=== PATIENT | female | born 1980 | race Caucasian/White ===

== ENCOUNTER 2020-09-08 13:24 | Outpatient (CLI) | payer OTHER ==
[2020-09-08 14:35] LABS: HCT - HEMATOCRIT 32.2 % (37.0-47.0); HGB - HEMOGLOBIN 10.8 g/dL (12.0-16.0); MEAN CORPUSCULAR HEMOGLOBIN 30.7 pg (27.0-31.0); MEAN CORPUSCULAR HGB CONC 33.5 g/dL (32.0-36.0); MEAN CORPUSCULAR VOLUME 91.5 fL (81.0-99.0); MEAN PLATELET VOLUME 9.4 fL (7.9-10.8); RED BLOOD COUNT 3.52 10^6/uL (4.20-5.40); RED CELL DISTRIBUTION WIDTH 13.7 % (12.0-15.0); WHITE BLOOD COUNT 9.3 x10^3/uL (4.8-10.8)
[2020-09-08 14:53] LABS: CREATININE,URINE 126.8 mg/dL; PROTEIN/CREATININE RATIO,URINE 0.3 (<=0.2)
[2020-09-08 14:56] LABS: ALBUMIN 3.2 g/dL (3.2-5.5); ALBUMIN/GLOBULIN RATIO 0.9 (1.0-2.2); BILIRUBIN,TOTAL 0.7 mg/dL (0.2-1.0); CALCIUM 8.7 mg/dL (8.5-10.3); CREATININE 0.5 mg/dL (0.4-1.0); POTASSIUM 3.5 mmol/L (3.5-5.0); TOTAL PROTEIN 6.7 g/dL (6.7-8.2)
== END 2020-09-08 13:25 | disposition home or self-care (01) ==
LOC: LAB 13:24
PROVIDERS: ATTEND Obstetrics & Gynecology
DX: O09.90 Supervision of high risk pregnancy, unspecified, unspecified trimester (principal); Z36.89 Encounter for other specified antenatal screening; Z87.59 Personal history of other complications of pregnancy, childbirth and the puerperium
CPT/HCPCS: 36415; 80053; 82570; 82950; 84156; 85027; 86762; 86850; 86900; 86901

== ENCOUNTER 2020-09-08 18:31 | Observation (INO) | payer OTHER ==
[2020-09-08] MEDS ORDERED: BETAMETHASONE 30 MG/5 ML VIAL IM ONE (20:53)
[2020-09-08] MEDS ORDERED: SERTRALINE 50 MG TABLET PO SCH (21:36)
[2020-09-09 06:36] LABS: BASOPHILS % (AUTO) 0.3 %; HCT - HEMATOCRIT 34.2 % (37.0-47.0); LYMPHOCYTES # (AUTO) 1.1 10^3/uL (1.5-3.5); LYMPHOCYTES % (AUTO) 12.1 %; MEAN CORPUSCULAR HEMOGLOBIN 29.9 pg (27.0-31.0); MEAN CORPUSCULAR HGB CONC 32.2 g/dL (32.0-36.0); MEAN CORPUSCULAR VOLUME 92.9 fL (81.0-99.0); MEAN PLATELET VOLUME 10.1 fL (7.9-10.8); MONOCYTES # (AUTO) 0.2 10^3/uL (0.0-1.0); MONOCYTES % (AUTO) 1.6 %; NEUTROPHILS % (AUTO) 85.1 %; PLT - PLATELET COUNT 217 10^3/uL (130-450); RED BLOOD COUNT 3.68 10^6/uL (4.20-5.40); RED CELL DISTRIBUTION WIDTH 13.5 % (12.0-15.0); WHITE BLOOD COUNT 9.4 x10^3/uL (4.8-10.8)
[2020-09-09 06:55] LABS: ALBUMIN 3.3 g/dL (3.2-5.5); ALBUMIN/GLOBULIN RATIO 0.9 (1.0-2.2); BILIRUBIN,TOTAL 0.9 mg/dL (0.2-1.0); CALCIUM 9.1 mg/dL (8.5-10.3); CREATININE 0.4 mg/dL (0.4-1.0); POTASSIUM 3.6 mmol/L (3.5-5.0); TOTAL PROTEIN 6.8 g/dL (6.7-8.2)
[2020-09-09] MEDS ORDERED: LABETALOL 100 MG TABLET PO SCH ×2 (08:00→16:00)
[2020-09-09 08:13] VITALS: BP 141/88
--- NOTE | 2020-09-09 09:27 | Discharge Plan ---
Discharge Plan Problem Reviewed?: No Disposition: Home, Self Care Condition: Good Diet: Regular Additional Instructions or Follow Up instructions: Go to triage immediately for any moderateWe to severe headaches, flashers in vision, worsening spots in vision, upper abdominal pain, or a sudden change in swelling, or blood pressure 170/110. Take blood pressures twice daily. Take an extra blood pressure if you feel weird. Take your labetalol 200mg every 8 hours. o Goal blood pressures 140-150s/90s. o If your blood pressure is less than 140/90 then take 100mg of labetalol for your next dose (only once) rather than 200mg. o If your blood pressure is 160/100 then take 100mg of labetalol extra. Recheck your blood pressure in 1 hour. If it is still more than 160/100 then take 100mg more of labetalol and come to triage. o *For BPs, if EITHER number fits the abnormal range then follow the advice above. You dont have to have both a top and bottom number to be abnormal. Return to triage for your 2nd betamethasone tonight at 9:15pm. We will want to give it around 9:40pm. Rest at home. Try not to run after the kids. No exercise, working, or errands. You can be up around the house doing easy chores. Anticipate needing to have a perterm delivery when you develop severe preeclampsia. We would transport [facility] to [facility] to be at their NICU. Ongoing surveillance to see if you are getting worse o 2x per week visits in triage for NST. At this visit once weekly we will do bloodwork. o 1x per week ultrasound to check growth and amniotic fluid. o OB visits in clinic weekly. No Smoking: If you smoke, Please STOP! Call for help. Follow-up with: Yeny Mcclure MD [Provider Admit Priv/Credential] - 1 Week (In 5d in clinic Tonight for betamethasone #2 3d for NST)
--- NOTE | 2020-09-09 11:02 | Ultrasound Report ---
PROCEDURE: OB F/U or Repeat INDICATIONS: preeclampsia OUTSIDE/PRIOR DATING DATA: Last menstrual period (LMP): None available. LMP-based estimated date of delivery (SONIA): Given by the physician as 11/13/2020. First dating scan (date and location): 09/09/2020. TECHNIQUE: Real-time scanning was performed of the fetus, with image documentation and biometric measurements. COMPARISON: None. FINDINGS: General: A single live intrauterine gestation is present. Presentation: Transverse, with the head to the maternal right Placenta: Placental position is posterior, without previa. Amniotic fluid index: 19.8 cm, 83rd percentile for gestational age. heart rate: 160 beats per minute. Maternal cervical canal: 3.7 cm long; normal length is 2.5 cm or more. biometrics: Biparietal diameter: 7.8 cm equals 31 weeks 2 days Head circumference: 28.9 cm equals 31 weeks 6 days Abdominal circumference: 27.7 cm equals 31 weeks 5 days Femur length: 5.8 cm equals 30 weeks 2 days Estimated gestational age from initial scan: 30 weeks 5 days Composite gestational age from present scan: 31 weeks 2 days Estimated weight and percentile: 1730 g, 56 percentile Measurement variability in biometric dating: +/- 10 days from 12-20 weeks gestation, +/- 2 weeks from 20-30 weeks gestation, +/- 3 weeks at 30 weeks gestation or more. Other: Not applicable. IMPRESSION: No significant ultrasound abnormality is seen. Note: Concordant preliminary findings given by the sap analyst upon the completion of the examination to nurse Pat at 10:40 AM Reviewed by: Gene Ramos MD on 09/09/2020 10:01 AM YOAV Approved by: Gene Ramos MD on 09/09/2020 10:01 AM YOAV Station ID: [id number]
--- NOTE | 2020-09-09 14:24 | HISTORY & PHYSICAL EXAMINATION ---
History of Present Illness - History of Present Illness HPI Comment/Other: OBSERVATION NOTE CC: asked to come in due to abnormal P:C ratio HPI: BPs increasing at home, some in 170/100s, increased her labetalol from 100mg bid to 200mg bid today. Mild ONEILL and gets them pretty frequently--feels the same. Has had scotoma for weeks and they are slowly increasing with time but no abrupt recent increase in symptoms. No upper abdominal pain. Feels puffy, unable to wear her usual rings, gained 5# last week but that was taken with 2 different scales. ROS: no VB, no LOF. Good FM. PMH: chronic HTN, depression PSH: x2, D&C, cholecystectomy Allergies: blueberry and bee venom Meds: labetalol 200mg po bid, ASA 81mg daily, PNV daily, sertraline 75mg daily OB: DATING: LMP 02/07/20 gives SONIA 11/13/20 US on 04/19/20 at 10+0 wga gives SONIA 11/15/20; cwd labs not available in records obtained CHTN: Taking labetalol 100 mg po bid -BPs in 150/100 at first OB visit -No baseline labs notes other than trace protein on initial UA -ASA 81 mg ANXIETY/DEPRESSION: Taking sertraline 75 mg po daily. A pos/Rubella imm VZV: had chicken pox as a child Genetic testing: normal, per pt FAS: normal, per pt Glucola ordered today ETA 162 Influenza: received per pt TDAP given HSV: denies MOD: repeat CS with BTL pap: 04/19/2020. 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 Most recent BPs 140s/80s. Alert, smiling, NAD Abd soft, nt/nd Fundus NT LE with trace edema to burgos 3+ DTR bilaterally, no clonus Normal PIH labs except for P:C ratio of 0.3 A/P: 40yo at 30w5d by LMP c/w 10w US with chronic hypertension and superimposed preeclampsia without severe features. Pt was observed overnight, BPs stable, no sx, labs unchanged. BMZ #1 given and she will return for #2 tonight. Growth US normal 56%ile and surveillance arranged. She was sent home with detailed instructions--she expressed comfort with/understanding of the plan. Go to triage immediately for any moderateWe to severe headaches, flashers in vision, worsening spots in vision, upper abdominal pain, or a sudden change in swelling, or blood pressure 170/110. Take blood pressures twice daily. Take an extra blood pressure if you feel weird. Take your labetalol 200mg every 8 hours. o Goal blood pressures 140-150s/90s. o If your blood pressure is less than 140/90 then take 100mg of labetalol for your next dose (only once) rather than 200mg. o If your blood pressure is 160/100 then take 100mg of labetalol extra. R echeck your blood pressure in 1 hour. If it is still more than 160/100 then take 100mg more of labetalol and come to triage. o *For BPs, if EITHER number fits the abnormal range then follow the advice above. You dont have to have both a top and bottom number to be abnormal. Return to triage for your 2nd betamethasone tonight at 9:15pm. We will want to give it around 9:40pm. Rest at home. Try not to run after the kids. No exercise, working, or errands. You can be up around the house doing easy chores. Anticipate needing to have a perterm delivery when you develop severe preeclampsia. We would transport you to [facility] to be at their NICU. Ongoing surveillance to see if you are getting worse o 2x per week visits in triage for NST. At this visit once weekly we will do bloodwork. o 1x per week ultrasound to check growth and amniotic fluid. o OB visits in clinic weekly. Meds/Allgy - Home Medications Home Medications: Ambulatory Orders Medication Instructions Recorded Confirmed Labetalol [Trandate] 200 mg PO BID 09/08/20 09/08/20 Sertraline [Zoloft] 50 mg PO DAILY 09/08/20 09/08/20 - Allergies Allergies/Adverse Reactions: Allergies Allergy/AdvReac Type Severity Reaction Status Date / Time blueberry Allergy Intermediate Hives Verified 09/08/20 21:09 bee venom protein (honey bee) Allergy Hives Verified 09/08/20 21:09 Exam - Vital Signs Vital Signs: Vital Signs x48h Temp Pulse Resp BP Pulse Ox 09/09/20 08:12 99.0 F 95 18 141/88 H 99 Conclusion/Plan - Lab Results Fish Bones: 09/09/20 05:40 09/09/20 05:40
[2020-09-09] MEDS ORDERED: SERTRALINE 50 MG TABLET PO SCH (21:00)
--- NOTE | 2020-10-03 17:02 | PROCEDURE REPORT ---
- HPI Diagnosis/Indication for NST: Pre- Hypertension Current EDU 11/13/20 Gestation 30 Weeks and 4 Days 4 Para 2 Vital Signs Temperature 99.0 F 09/08/20 18:39 Heart Rate 98 09/08/20 18:39 Respiratory Rate 20 09/08/20 18:39 Blood Pressure 169/81 H 09/08/20 18:39 O2 Saturation 100 09/08/20 18:39 Temperature 99.0 F 09/09/20 08:12 Heart Rate 95 09/09/20 08:12 Respiratory Rate 18 09/09/20 08:12 Blood Pressure 141/88 H 09/09/20 08:12 O2 Saturation 99 09/09/20 08:12 - NST Procedure NST Procedure Start Date 09/08/20 Start Time 18:40 Stop Time 20:40 Vibroacoustic Stimulation Used No Patient States Movement Yes - Results and Plan Findings/Impression: Baseline: normal BPM Variability: Moderate Accelerations: Present Decelerations: Absent Trends in FHR over time: no changes [place] contractions in 10 minutes: 0 Impression: reactive Category 1 NST
== END 2020-09-09 11:35 | disposition home or self-care (01) ==
LOC: WFO 18:31 → FBP 18:35 → WFO 20:52 → FBP 20:52
PROVIDERS: ADMIT Obstetrics & Gynecology; ATTEND Obstetrics & Gynecology
DX: O11.3 Pre-existing hypertension with pre-eclampsia, third trimester (principal); O99.343 Other mental disorders complicating pregnancy, third trimester; F32.9 Major depressive disorder, single episode, unspecified; O34.219 Maternal care for unspecified type scar from previous cesarean delivery; O09.90 Supervision of high risk pregnancy, unspecified, unspecified trimester; Z36.89 Encounter for other specified antenatal screening; Z87.59 Personal history of other complications of pregnancy, childbirth and the puerperium; Z3A.30 30 weeks gestation of pregnancy; Z79.899 Other long term (current) drug therapy
CPT/HCPCS: 36415; 59025; 76816; 80053; 82570; 82950; 84156; 85025; 85027; 86762; 86850; 86900; 86901; 96372; 99213; A9270; G0378

== ENCOUNTER 2020-09-09 21:13 | Outpatient (CLI) | payer OTHER ==
[2020-09-09] MEDS ORDERED: BETAMETHASONE 30 MG/5 ML VIAL IM ONE (21:19)
[2020-09-09 21:26] VITALS: BP 132/72
--- NOTE | 2020-09-10 18:21 | PROVIDER PROGRESS NOTE ---
- HPI Current : Vital Signs Temperature 98.8 F 09/09/20 21:21 Heart Rate 88 09/09/20 21:21 Respiratory Rate 16 09/09/20 21:21 Blood Pressure 132/72 H 09/09/20 21:21 Temperature 98.8 F 09/09/20 21:21 Heart Rate 88 09/09/20 21:21 Respiratory Rate 16 09/09/20 21:21 Blood Pressure 132/72 H 09/09/20 21:21 O2 Saturation - Procedures NST Procedure: NST Procedure Start Time 18:40 Stop Time 20:40 - Plan Plan: Betamethasone #2 given. Diagnosis is preeclampsia without severe features.
== END 2020-09-09 21:25 | disposition home or self-care (01) ==
LOC: WFO 21:13 → FBP 21:14 → WFO 21:25
PROVIDERS: ATTEND Obstetrics & Gynecology
DX: O14.00 Mild to moderate pre-eclampsia, unspecified trimester (principal); Z3A.00 Weeks of gestation of pregnancy not specified

== ENCOUNTER 2020-09-11 10:02 | Outpatient (CLI) | payer OTHER ==
--- NOTE | 2020-09-11 14:52 | Ultrasound Report ---
PROCEDURE: OB Biophysical Profile INDICATIONS: Nonreactive NST OUTSIDE/PRIOR DATING DATA: Estimated date of delivery (SONIA) from ordering physician: 11/13/2020. TECHNIQUE: Real-time scanning was performed of the fetus, with image documentation and biometric scout surements. Biophysical profile was also obtained. Endovaginal scanning: Not needed FINDINGS: General: A single living intrauterine gestation is present. Presentation: Fetus head maternal right, transverse orientation Placenta: Placental position is posterior, without previa. Amniotic fluid index: 14.6 cm, 51% for gestational age. heart rate: 158 beats per minute. Maternal cervical canal: 4.4 cm long; normal length is 2.5 cm or more. biometrics: Estimated gestational age from initial scan: not applicable. Composite gestational age from present scan: 31 weeks 0 days Biophysical profile: 8 of 8 possible points. Tone: 2 points. Movement: 2 points. Respiration: 2 points. Largest pocket of fluid: 2 points. Umbilical artery Doppler: Normal at the proximal, mid and distal thirds Note is made of a single bilateral ovarian cyst on the right and on the left. These measure up to 2.7 cm and 2.2 cm, respectively. IMPRESSION: Normal biophysical profile, 8 of 8 possible points, normal umbilical artery systolic/diastolic ratio at the proximal, mid and distal thirds. Reviewed by: Larry Vargas MD on 09/11/2020 2:50 PM PDT Approved by: Larry Vargas MD on 09/11/2020 2:50 PM PDT Station ID: [id number]
[2020-09-11 15:25] VITALS: BP 140/80
--- NOTE | 2020-09-12 11:11 | PROCEDURE REPORT ---
- HPI Diagnosis/Indication for NST: Gestational Hypertension Current EDU 11/13/20 Gestation 31 Weeks and 0 Days 4 Para 2 Vital Signs Temperature 98.2 F 09/11/20 15:24 Heart Rate 78 09/11/20 15:24 Respiratory Rate 18 09/11/20 15:24 Blood Pressure 140/80 H 09/11/20 15:24 Temperature 98.2 F 09/11/20 15:24 Heart Rate 78 09/11/20 15:24 Respiratory Rate 18 09/11/20 15:24 Blood Pressure 140/80 H 09/11/20 15:24 O2 Saturation - NST Procedure NST Procedure Start Date 09/11/20 Start Time 10:13 Stop Time 12:10 Vibroacoustic Stimulation Used Yes Patient States Movement Yes - Results and Plan Findings/Impression: Baseline: BPM 150 Variability: Moderate Accelerations: absent Decelerations: Absent Trends in FHR over time: no changes [place] contractions in 10 minutes: 0 Impression: category 1 NST, BPP 8/8.
== END 2020-09-11 13:00 | disposition home or self-care (01) ==
LOC: WFO 10:02 → FBP 10:06 → WFO 13:00
PROVIDERS: ATTEND Obstetrics & Gynecology
DX: O13.3 Gestational [pregnancy-induced] hypertension without significant proteinuria, third trimester (principal); Z3A.31 31 weeks gestation of pregnancy
CPT/HCPCS: 59025

== ENCOUNTER 2020-09-14 05:10 | Observation (INO) | payer OTHER ==
[2020-09-14] MEDS ORDERED: LABETALOL 100 MG TABLET PO SCH (05:34)
[2020-09-14 06:01] LABS: BASOPHILS % (AUTO) 0.4 %; EOSINOPHILS # (AUTO) 0.1 10^3/uL (0.0-0.7); EOSINOPHILS % (AUTO) 1.4 %; HCT - HEMATOCRIT 32.7 % (37.0-47.0); HGB - HEMOGLOBIN 10.6 g/dL (12.0-16.0); LYMPHOCYTES # (AUTO) 1.9 10^3/uL (1.5-3.5); LYMPHOCYTES % (AUTO) 20.4 %; MEAN CORPUSCULAR HEMOGLOBIN 29.9 pg (27.0-31.0); MEAN CORPUSCULAR HGB CONC 32.4 g/dL (32.0-36.0); MEAN CORPUSCULAR VOLUME 92.4 fL (81.0-99.0); MEAN PLATELET VOLUME 9.6 fL (7.9-10.8); MONOCYTES # (AUTO) 0.7 10^3/uL (0.0-1.0); MONOCYTES % (AUTO) 7.8 %; NEUTROPHILS # (AUTO) 6.3 10^3/uL (1.5-6.6); NEUTROPHILS % (AUTO) 68.9 %; PLT - PLATELET COUNT 227 10^3/uL (130-450); RED BLOOD COUNT 3.54 10^6/uL (4.20-5.40); RED CELL DISTRIBUTION WIDTH 13.4 % (12.0-15.0); WHITE BLOOD COUNT 9.1 x10^3/uL (4.8-10.8)
[2020-09-14 06:01] LABS: BILIRUBIN,URINE NEGATIVE (NEGATIVE); CLARITY,URINE CLEAR (CLEAR); GLUCOSE, URINE (UA) NEGATIVE (NEGATIVE); KETONES,URINE (UA) NEGATIVE (NEGATIVE); LEUKOCYTE ESTERASE, URINE NEGATIVE (NEGATIVE); NITRITE,URINE NEGATIVE (NEGATIVE); OCCULT BLOOD,URINE NEGATIVE (NEGATIVE); PH,URINE 6.5 PH (5.0-7.5); PROTEIN,URINE TRACE mg/dL (NEGATIVE); UROBILINOGEN,URINE 0.2 (NORMAL) E.U./dL (NORMAL)
[2020-09-14 06:10] LABS: CREATININE,URINE 130.7 mg/dL; PROTEIN/CREATININE RATIO,URINE 0.3 (<=0.2)
[2020-09-14 06:20] LABS: CREATININE 0.5 mg/dL (0.4-1.0); URIC ACID 3.4 mg/dL (2.6-7.2)
[2020-09-14] MEDS ORDERED: ACETAMINOPHEN 500 MG TABLET PO PRN (06:28)
[2020-09-14] MEDS ORDERED: LABETALOL 100 MG TABLET PO PRN (08:54)
[2020-09-14] MEDS ORDERED: ZOLPIDEM 5 MG TABLET PO PRN (08:56)
[2020-09-14] MEDS ORDERED: FAMOTIDINE 20 MG TABLET PO PRN (08:56)
[2020-09-14] MEDS ORDERED: CALCIUM CARBONATE CHEW 500 MG TABLET PO PRN (08:56)
--- NOTE | 2020-09-14 09:01 | HISTORY & PHYSICAL EXAMINATION ---
History of Present Illness - History of Present Illness HPI Comment/Other: CC: high blood pressure HPI: preeclampsia, has been taking BP at home and using labetalol PRN elevated value. See her log below-- BP log at home: 140-150s/mid 70s-80s 09/09/20 to 09/11/20 09/12/20 felt weird, slight headache, 165/80. Took labetalol 100mg and mild on repeat. 09/13 163/92 took an extra 100mg of labetalol and was mild on repeat. 5h later she felt dizzy and light-headed and BP was 122/74 09/14 headache and nausea 167/90 then 165/87. Took an extra 100mg labetalol and came to triage At triage admit 175/87. dropping to 150s 1h after another dose of 100mg labetalol, dropping to 140s about 1h later. Since yesterday dinnertime has had gradual onset of a mild to moderate headache. At first resolved last hs with tylenol and then recurred. Has had ONEILL earlier in preg but not very often at all. Took another dose of tylenol here in triage and it didn't seem to help much. Thinks she is over-tired and that may be a reason for ONEILL. Seeing some scotoma but has been doing this for weeks. Has mild upper abd pain sometimes after eating or when bending over. ROS: no UC, vaginal bleeding, or contractions. Good FM. PMH: chronic HTN, depression PSH: x2, D&C, cholecystectomy Allergies: blueberry and bee venom Meds: labetalol 200mg po tid with additional 100mg PRN elevated BP, ASA 81mg daily, PNV daily, sertraline 75mg daily OB: DATING: LMP 02/07/20 gives SONIA 11/13/20 US on 04/19/20 at 10+0 wga gives SONIA 11/15/20; cwd CHTN: -BPs in 150/100 at first OB visit -No baseline labs notes other than trace protein on initial UA -ASA 81 mg ANXIETY/DEPRESSION: Taking sertraline 75 mg po daily. A pos/Rubella imm VZV: had chicken pox as a child Genetic testing: normal, per pt FAS: normal, per pt Glucola ordered today ETA 162 Influenza: received per pt TDAP given HSV: denies MOD: repeat CS with BTL pap: 04/19/2020. 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 dropping to 150s 1h after another dose of 100mg labetalol, dropping to 140s about 1h later. Alert, smiling but anxious Abd soft, nt/nd Fundus NT LE with trace edema to burgos 3+ DTR bilaterally, no clonus Normal PIH labs except for P:C ratio of 0.3 Category 1 NST [place] neg A/P: 40yo at 31w3d by LMP c/w 10w US with chronic hypertension and superimposed preeclampsia initially diagnosed at 30w, now r/o severe features. Pt had some BP last week that were 170s so this is not new. Have been working up on labetalol since then, however. Pt is wondering if BP lability may be due to the labetalol and it could be with its short acting nature. Will switch to nifedipine xl 60mg daily with labetalol PRN breakthrough BPs. Watch here today with switch in meds and while watching ONEILL Pt with mild to mod ONEILL, initially improved with tylenol, possibly related to stress and lack of sleep. Will continue tylenol and observe. Pt's preeclampsia in the past presented with a severe headache. Transport to NICU facility PRN consistent severe features. Fetus: s/p BMZ #2 on 09/09/20. Growth US last week normal 56%ile. Category 1 NST. Will get BPP. Meds/Allgy - Home Medications Home Medications: Ambulatory Orders Medication Instructions Recorded Confirmed Labetalol [Trandate] 200 mg PO BID 09/08/20 09/08/20 Sertraline [Zoloft] 50 mg PO DAILY 09/08/20 09/08/20 - Allergies Allergies/Adverse Reactions: Allergies Allergy/AdvReac Type Severity Reaction Status Date / Time blueberry Allergy Intermediate Hives Verified 09/08/20 21:09 bee venom protein (honey bee) Allergy Hives Verified 09/08/20 21:09 Exam - Vital Signs Vital Signs: Vital Signs x48h Temp Pulse Resp BP Pulse Ox 09/14/20 06:20 84 147/84 H 09/14/20 06:10 154/89 H 09/14/20 06:01 158/86 H 05/13/21 05:25 98.7 F 86 16 175/87 H 98 Conclusion/Plan - Lab Results Fish Bones: 09/14/20 05:50 09/14/20 05:50
[2020-09-14] MEDS: hydrOXYzine PAMOATE 25 MG CAPSULE PO PRN ×2 (09:15→22:25)
[2020-09-14] MEDS: NIFEdipine ER 30 MG TABLET PO SCH (09:17)
--- NOTE | 2020-09-14 16:36 | Ultrasound Report ---
PROCEDURE: OB Biophysical Profile INDICATIONS: preeclampsia. Dopplers too please. OUTSIDE/PRIOR DATING DATA: Last menstrual period (LMP): Unknown. LMP-based estimated date of delivery (SONIA): Unknown. First dating scan (date and location): Unknown. Estimated date of delivery (SONIA) from first dating scan: Unknown. Physicians stated SONIA is 11/13/20.. TECHNIQUE: Real-time scanning was performed of the fetus, with image documentation and biometric scout surements. Biophysical profile was also obtained. COMPARISON: OB ultrasound 09/09/2020, 09/11/2020 FINDINGS: General: A single living intrauterine gestation is present. Presentation: Vertex Placenta: Placental position is posterior, without previa. Amniotic fluid index: 18.6 cm, 77th percentile for gestational age. Largest pocket 7.7 cm. heart rate: 150 beats per minute. Maternal cervical canal: 3.4 cm long; normal length is 2.5 cm or more. biometrics: Estimated gestational age from initial scan: 31 weeks 3 days Biophysical profile: Tone: 2 points. Movement: 2 points. Respiration: 0 points. Largest pocket of fluid: 2 points. Umbilical artery Doppler: 2.7, 2.5, 2.4 Miscellaneous: Right ovarian cyst is noted measuring 2.9 x 1.6 x 2.5 cm, left ovarian cyst measuring 1.8 x 1.2 x 1.5 cm. IMPRESSION: 1. Single live intrauterine . 2. BPP 6 out of 8 3. Cord Dopplers measure 2.7, 2.5 and 2.4. Reviewed by: Maine Duran MD on 09/14/2020 4:35 PM PDT Approved by: Maine Duran MD on 09/14/2020 4:35 PM PDT Station ID: [id number]
[2020-09-14] MEDS: SODIUM CHLORIDE FLUSH 0.9% 10 ML SYRINGE IVP PRN ×2 (20:54→22:25)
[2020-09-14] MEDS ORDERED: ONDANSETRON 4 MG/2 ML VIAL IVP PRN (22:11)
[2020-09-15 07:32] LABS: CREATININE,URINE 194.8 mg/dL; PROTEIN/CREATININE RATIO,URINE 0.2 (<=0.2)
[2020-09-15] MEDS: SODIUM CHLORIDE FLUSH 0.9% 10 ML SYRINGE IVP PRN (08:31)
[2020-09-15 08:38] VITALS: BP 140/82
[2020-09-15] MEDS: NIFEdipine ER 30 MG TABLET PO SCH (08:38)
--- NOTE | 2020-09-15 08:44 | Discharge Plan ---
Discharge Plan Problem Reviewed?: Yes Disposition: Home, Self Care Condition: Good Prescriptions: NIFEdipine [Procardia Xl] 30 mg PO DAILY #90 tablet Diet: Regular Activity Restrictions: No exercise Shower Restrictions: No Driving Restrictions: No Additional Instructions or Follow Up instructions: Take nifedipine XL, 30mg in the morning around 9am Today take your blood pressure every 4 hours and keep recording the values in your log If the top number of your blood pressure is 155-165, then take 100mg of labetalol and recheck your BP in 1 hour. If it is still 155-165 then take another 100mg of labetalol. If the top number of your blood pressure is 165 or higher then take 200mg of labetalol and recheck in 1 hour. If it is still above 165 then take another 100mg of labetalol. If the top number of your blood pressure reaches 180 then please take 200mg of labetalol and come to triage immediately. Regardless of your blood pressures, if you have a moderate to severe headache, different visual changes, or upper abdominal pain then come to triage immediately. No Smoking: If you smoke, Please STOP! Call for help. Follow-up with: Yeny Mcclure MD [Provider Admit Priv/Credential] - 1 Week
== END 2020-09-15 09:55 | disposition home or self-care (01) ==
LOC: WFO 05:10 → FBP 05:12 → WFO 08:50 → FBP 08:51
PROVIDERS: ADMIT Obstetrics & Gynecology; ATTEND Obstetrics & Gynecology
DX: O11.3 Pre-existing hypertension with pre-eclampsia, third trimester (principal); Z3A.31 31 weeks gestation of pregnancy; O99.343 Other mental disorders complicating pregnancy, third trimester; F32.9 Major depressive disorder, single episode, unspecified; F41.9 Anxiety disorder, unspecified; Z79.82 Long term (current) use of aspirin; Z79.899 Other long term (current) drug therapy
CPT/HCPCS: 36415; 76819; 81003; 82565; 82570; 83615; 84156; 84450; 84460; 84550; 85025; 85384; 96374; 99215; A9270; G0378; 59025; 99213; 99214

== ENCOUNTER 2020-09-18 10:59 | Outpatient (CLI) | payer OTHER ==
[2020-09-18 11:13] VITALS: BP 134/87
--- NOTE | 2020-09-18 20:13 | PROCEDURE REPORT ---
- HPI Diagnosis/Indication for NST: Other (pre-eclampsia) Current EDU 11/13/20 Gestation 32 Weeks and 0 Days 3 Para 2 Vital Signs Temperature 99.3 F 09/18/20 11:08 Heart Rate 108 H 09/18/20 11:08 Respiratory Rate 18 09/18/20 11:08 Blood Pressure 134/87 H 09/18/20 11:08 Temperature 99.3 F 09/18/20 11:11 Heart Rate 107 H 09/18/20 11:11 Respiratory Rate 18 09/18/20 11:11 Blood Pressure 134/87 H 09/18/20 11:11 O2 Saturation - NST Procedure NST Procedure Start Date 09/18/20 Start Time 11:04 Stop Time 11:32 Patient States Movement Yes - Results and Plan Findings/Impression: Patient is a 40 yo at 32+0 wga with CHTN and MIGUEL here for NST Blood pressures wnl EFM 145 mod suzanne 15x15 accels no decels TOCO: quiet Cat I tracing Cont with twice weekly NST and weekly DARIN No change in antihypertensive regimen DX: CHTN with MIGUEL IUP at 32+0 wga
== END 2020-09-18 11:40 | disposition home or self-care (01) ==
LOC: WFO 10:59 → FBP 11:00 → WFO 11:40
PROVIDERS: ATTEND Obstetrics & Gynecology
DX: O11.3 Pre-existing hypertension with pre-eclampsia, third trimester (principal); O10.913 Unspecified pre-existing hypertension complicating pregnancy, third trimester; Z3A.32 32 weeks gestation of pregnancy
CPT/HCPCS: 59025

== ENCOUNTER 2020-09-21 09:57 | Outpatient (CLI) | payer OTHER ==
[2020-09-21 10:30] LABS: BASOPHILS % (AUTO) 0.3 %; EOSINOPHILS # (AUTO) 0.1 10^3/uL (0.0-0.7); HCT - HEMATOCRIT 36.2 % (37.0-47.0); HGB - HEMOGLOBIN 11.9 g/dL (12.0-16.0); LYMPHOCYTES # (AUTO) 1.7 10^3/uL (1.5-3.5); LYMPHOCYTES % (AUTO) 18.6 %; MEAN CORPUSCULAR HEMOGLOBIN 30.5 pg (27.0-31.0); MEAN CORPUSCULAR HGB CONC 32.9 g/dL (32.0-36.0); MEAN CORPUSCULAR VOLUME 92.8 fL (81.0-99.0); MEAN PLATELET VOLUME 9.7 fL (7.9-10.8); MONOCYTES # (AUTO) 0.7 10^3/uL (0.0-1.0); MONOCYTES % (AUTO) 7.7 %; NEUTROPHILS # (AUTO) 6.6 10^3/uL (1.5-6.6); NEUTROPHILS % (AUTO) 71.7 %; PLT - PLATELET COUNT 203 10^3/uL (130-450); RED CELL DISTRIBUTION WIDTH 14.1 % (12.0-15.0); WHITE BLOOD COUNT 9.2 x10^3/uL (4.8-10.8)
[2020-09-21 10:36] LABS: ALBUMIN 3.3 g/dL (3.2-5.5); ALBUMIN/GLOBULIN RATIO 0.9 (1.0-2.2); BILIRUBIN,TOTAL 0.6 mg/dL (0.2-1.0); CALCIUM 8.9 mg/dL (8.5-10.3); CREATININE 0.6 mg/dL (0.4-1.0); POTASSIUM 3.5 mmol/L (3.5-5.0); TOTAL PROTEIN 7.1 g/dL (6.7-8.2)
[2020-09-21 10:45] LABS: CREATININE,URINE 512.9 mg/dL; PROTEIN/CREATININE RATIO,URINE 0.1 (<=0.2)
[2020-09-21 11:35] VITALS: BP 159/93
--- NOTE | 2020-10-01 16:45 | PROCEDURE REPORT ---
- HPI Diagnosis/Indication for NST: Pre- Hypertension Current EDU 11/13/20 Gestation 32 Weeks and 3 Days 3 Para 2 Vital Signs Temperature 98.2 F 09/21/20 10:16 Heart Rate 103 H 09/21/20 10:16 Respiratory Rate 18 09/21/20 10:16 Blood Pressure 146/97 H 09/21/20 10:16 Temperature 98.2 F 09/21/20 10:16 Heart Rate 103 H 09/21/20 10:16 Respiratory Rate 18 09/21/20 10:16 Blood Pressure 159/93 H 09/21/20 10:48 O2 Saturation - NST Procedure NST Procedure Start Date 09/21/20 Start Time 10:11 Stop Time 10:58 Vibroacoustic Stimulation Used Yes Patient States Movement Yes EFM 140 mod suzanne 15x15 accels no decel TOCO: quiet - Results and Plan Findings/Impression: 40 yo at 32+3 wga with complicated by CHTN and hx of pre- eclampsia Cat I tracing Reviewed BP log Reviewed medication plan to nifedipine 30 mg po bid w labetalol 200 mg po at midday Warning signs reviewed. Cont with twice weekly NST and weekly DARIN Q4wk growth us. Mild range blood pressures and normal PIH labs, including normal P:C DX: IUP at 32+3 Hx of pre-eclampsia Hx of delivery 2/2 pre-eclampsia CHTN
== END 2020-09-21 11:25 | disposition home or self-care (01) ==
LOC: WFO 09:57 → FBP 09:59 → WFO 11:25
PROVIDERS: ATTEND Obstetrics & Gynecology
DX: O10.913 Unspecified pre-existing hypertension complicating pregnancy, third trimester (principal); Z87.59 Personal history of other complications of pregnancy, childbirth and the puerperium; Z3A.32 32 weeks gestation of pregnancy
CPT/HCPCS: 36415; 59025; 80053; 82570; 83615; 84156; 84450; 84550; 85025

== ENCOUNTER 2020-09-22 18:34 | Outpatient (CLI) | payer OTHER ==
[2020-09-22] MEDS ORDERED: NIFEdipine ER 30 MG TABLET PO ONE (18:57)
[2020-09-22 19:03] LABS: BASOPHILS % (AUTO) 0.3 %; EOSINOPHILS # (AUTO) 0.1 10^3/uL (0.0-0.7); EOSINOPHILS % (AUTO) 0.9 %; HCT - HEMATOCRIT 35.4 % (37.0-47.0); HGB - HEMOGLOBIN 11.7 g/dL (12.0-16.0); LYMPHOCYTES # (AUTO) 2.7 10^3/uL (1.5-3.5); LYMPHOCYTES % (AUTO) 22.5 %; MEAN CORPUSCULAR HEMOGLOBIN 30.7 pg (27.0-31.0); MEAN CORPUSCULAR HGB CONC 33.1 g/dL (32.0-36.0); MEAN CORPUSCULAR VOLUME 92.9 fL (81.0-99.0); MEAN PLATELET VOLUME 9.6 fL (7.9-10.8); MONOCYTES % (AUTO) 7.9 %; NEUTROPHILS # (AUTO) 8.2 10^3/uL (1.5-6.6); NEUTROPHILS % (AUTO) 67.9 %; PLT - PLATELET COUNT 193 10^3/uL (130-450); RED BLOOD COUNT 3.81 10^6/uL (4.20-5.40); RED CELL DISTRIBUTION WIDTH 14.2 % (12.0-15.0)
[2020-09-22 19:16] LABS: ALBUMIN 3.5 g/dL (3.2-5.5); ALBUMIN/GLOBULIN RATIO 0.9 (1.0-2.2); BILIRUBIN,TOTAL 0.5 mg/dL (0.2-1.0); CALCIUM 8.8 mg/dL (8.5-10.3); CREATININE 0.6 mg/dL (0.4-1.0); POTASSIUM 3.4 mmol/L (3.5-5.0); TOTAL PROTEIN 7.4 g/dL (6.7-8.2); URIC ACID 3.7 mg/dL (2.6-7.2)
[2020-09-22 19:37] LABS: CREATININE,URINE 174.1 mg/dL; PROTEIN/CREATININE RATIO,URINE 0.2 (<=0.2)
[2020-09-22] MEDS ORDERED: LACTATED RINGERS 1,000 ML IV ONE ×2 (19:40→19:45)
[2020-09-22 20:43] VITALS: BP 128/72
--- NOTE | 2020-09-23 08:52 | PROCEDURE REPORT ---
- HPI Diagnosis/Indication for NST: Gestational Hypertension (SUPERIMPOSED ON CHRONIC HYPERTENSION) Current EDU 11/13/20 Gestation 32 Weeks and 4 Days 4 Para 2 Vital Signs Temperature 36.7 C 09/22/20 18:56 Heart Rate 94 09/22/20 18:56 Respiratory Rate 17 09/22/20 18:56 Blood Pressure 163/101 H 09/22/20 18:56 O2 Saturation 100 09/22/20 18:56 Temperature 36.7 C 09/22/20 18:56 Heart Rate 86 09/22/20 20:43 Respiratory Rate 19 09/22/20 20:43 Blood Pressure 128/72 09/22/20 20:43 O2 Saturation 97 09/22/20 20:43 - NST Procedure NST Procedure Start Date 09/22/20 Start Time 18:49 Stop Time 20:47 Vibroacoustic Stimulation Used No Patient States Movement Yes - Results and Plan Findings/Impression: REACTIVE NST WITH EPISODE OF TACHYCARDIA. Plan: KEEP APPT TOMORROW FOR NST AND US.
--- NOTE | 2020-09-23 08:54 | PROVIDER PROGRESS NOTE ---
- HPI Chief Complaint: Hypertension/PIH Current : Current EDU 11/13/20 Gestation 32 Weeks and 4 Days 4 Para 2 Vital Signs Temperature 36.7 C 09/22/20 18:56 Heart Rate 94 09/22/20 18:56 Respiratory Rate 17 09/22/20 18:56 Blood Pressure 163/101 H 09/22/20 18:56 O2 Saturation 100 09/22/20 18:56 Temperature 36.7 C 09/22/20 18:56 Heart Rate 86 09/22/20 20:43 Respiratory Rate 19 09/22/20 20:43 Blood Pressure 128/72 09/22/20 20:43 O2 Saturation 97 09/22/20 20:43 - Procedures OB Procedure Performed: NST Diagnosis/Indication for NST: Gestational Hypertension NST Procedure: NST Procedure Start Date 09/22/20 Start Time 18:49 Stop Time 20:47 Vibroacoustic Stimulation Used No Patient States Movement Yes Service Date of procedure: 09/22/20 Findings: With her third . She has a history of havingPatient is a 40-year-old had preeclampsia with her 2 previous pregnancies. She was delivered at 34 weeks with both previous pregnancies. She was seen in the clinic today at which time her blood pressures were noted to be in the adequate range. She is recently been changed to Procardia 30 mg twice daily from [employer]. This afternoon she was unable to keep her Procardia down and vomited up. She presented to labor and delivery with a blood pressure in the 160s over 105's. Patient was readministered her Procardia 30 mg her blood pressures normalized. She had repeat preeclampsia labs which were within normal limits with the exception of her protein creatinine ratio which had increased from 0.1-0.2. This does not meet criteria for preeclampsia yet however it is highly likely that she will develop preeclampsia in the remaining of her . She is currently taking a baby aspirin daily. - Plan Plan: Patient was discharged and instructed to take Procardia 30 mg twice daily. She was also instructed to take labetalol for any breakthrough hypertension. She has a nonstress test with ultrasound scheduled for the . She is told to keep this appointment. Patient was seen on 22 September. This note is for that visit.
== END 2020-09-22 20:55 | disposition home or self-care (01) ==
LOC: WFO 18:34 → FBP 18:36 → WFO 20:55
PROVIDERS: ATTEND Obstetrics & Gynecology
DX: O10.913 Unspecified pre-existing hypertension complicating pregnancy, third trimester (principal); O36.8330 Maternal care for abnormalities of the fetal heart rate or rhythm, third trimester, not applicable or unspecified; Z3A.32 32 weeks gestation of pregnancy
CPT/HCPCS: 36415; 59025; 80053; 82570; 84156; 84550; 85025; 99215; A9270; J7120

== ENCOUNTER 2020-09-23 17:07 | Outpatient (CLI) | payer OTHER ==
[2020-09-23 17:27] VITALS: BP 136/81
--- NOTE | 2020-09-26 12:51 | PROCEDURE REPORT ---
- HPI Diagnosis/Indication for NST: Gestational Hypertension Current EDU 11/13/20 Gestation 32 Weeks and 5 Days 3 Para 2 Vital Signs Temperature 36.6 C 09/23/20 17:23 Heart Rate 105 H 09/23/20 17:23 Respiratory Rate 18 09/23/20 17:23 Blood Pressure 143/91 H 09/23/20 17:23 O2 Saturation 98 09/23/20 17:23 Temperature 36.6 C 09/23/20 17:23 Heart Rate 105 H 09/23/20 17:23 Respiratory Rate 18 09/23/20 17:23 Blood Pressure 136/81 H 09/23/20 17:26 O2 Saturation 98 09/23/20 17:23 - NST Procedure NST Procedure Start Date 09/23/20 Start Time 17:24 Stop Time 17:47 Vibroacoustic Stimulation Used No Patient States Movement Yes - Results and Plan Findings/Impression: REACTIVE NST Plan: CONTINUE TESTING MONITOR BP
== END 2020-09-23 18:15 | disposition home or self-care (01) ==
LOC: WFO 17:07 → FBP 17:09 → WFO 18:15
PROVIDERS: ATTEND Obstetrics & Gynecology
DX: O14.93 Unspecified pre-eclampsia, third trimester (principal); Z3A.32 32 weeks gestation of pregnancy
CPT/HCPCS: 59025

== ENCOUNTER 2020-09-23 18:19 | Outpatient (CLI) | payer OTHER ==
--- NOTE | 2020-09-23 23:20 | Ultrasound Report ---
PROCEDURE: OB Limited INDICATIONS: UNSPECIFIED PRE-ECLAMPSIA OUTSIDE/PRIOR DATING DATA: Last menstrual period (LMP): Unknown. LMP-based estimated date of delivery (SONIA): Unknown. First dating scan (date and location): Unknown. Estimated date of delivery (SONIA) from first dating scan: Unknown. The below data below was generated using the physician's stated SONIA of 11/13/2020 TECHNIQUE: Real-time scanning was performed of the fetus, with image documentation. Endovaginal scanning: Not performed COMPARISON: None. FINDINGS: A single living intrauterine gestation is present. Presentation: Cephalic Placenta: Placental position is posterior, without previa. Amniotic fluid index: 21.8 cm, which falls between the 50th and 95th percentile for gestational age. Largest vertical pocket measured 7.9 cm heart rate: 152 beats per minutes. Maternal cervical canal: Maternal cervical length was not measured secondary to difficulty in visuali zation secondary to presentation and advanced gestational age. Estimated gestational age from i nitial scan: 32 weeks and 5 days. IMPRESSION: 1. Single living intrauterine gestation with estimated gestational age of approximately 32 weeks and 5 days. 2. Four-quadrant DARIN measuring 21.8 cm which falls between the 50th and 95th percentile for gestation al age. Largest vertical pocket measured 7.9 cm. Reviewed by: Artemio Hickey MD on 09/23/2020 11:18 PM PDT Approved by: Artemio Hickey MD on 09/23/2020 11:18 PM PDT Station ID: [id number]
--- NOTE | 2020-09-24 11:35 | PROCEDURE REPORT ---
- HPI Diagnosis/Indication for NST: Gestational Hypertension - NST Procedure NST Procedure Start Time 17:24 Stop Time 17:47 - Results and Plan Findings/Impression: Reactive NST. Her DARIN was noted to be 21.8 cm. Patient's blood pressures while here were acceptable. Plan: Continue testing.
== END 2020-09-23 18:20 | disposition home or self-care (01) ==
LOC: DI 18:19
PROVIDERS: ATTEND Obstetrics & Gynecology
DX: O14.93 Unspecified pre-eclampsia, third trimester (principal); Z3A.32 32 weeks gestation of pregnancy

== ENCOUNTER 2020-09-26 17:09 | Outpatient (CLI) | payer OTHER ==
[2020-09-26 17:52] LABS: BASOPHILS % (AUTO) 0.4 %; EOSINOPHILS # (AUTO) 0.1 10^3/uL (0.0-0.7); HCT - HEMATOCRIT 34.9 % (37.0-47.0); HGB - HEMOGLOBIN 11.3 g/dL (12.0-16.0); LYMPHOCYTES # (AUTO) 1.7 10^3/uL (1.5-3.5); LYMPHOCYTES % (AUTO) 21.5 %; MEAN CORPUSCULAR HEMOGLOBIN 29.9 pg (27.0-31.0); MEAN CORPUSCULAR HGB CONC 32.4 g/dL (32.0-36.0); MEAN CORPUSCULAR VOLUME 92.3 fL (81.0-99.0); MONOCYTES # (AUTO) 0.6 10^3/uL (0.0-1.0); MONOCYTES % (AUTO) 7.9 %; NEUTROPHILS # (AUTO) 5.6 10^3/uL (1.5-6.6); NEUTROPHILS % (AUTO) 68.7 %; PLT - PLATELET COUNT 192 10^3/uL (130-450); RED BLOOD COUNT 3.78 10^6/uL (4.20-5.40); RED CELL DISTRIBUTION WIDTH 14.1 % (12.0-15.0); WHITE BLOOD COUNT 8.1 x10^3/uL (4.8-10.8)
[2020-09-26 18:02] LABS: ALBUMIN 3.2 g/dL (3.2-5.5); ALBUMIN/GLOBULIN RATIO 0.9 (1.0-2.2); BILIRUBIN,TOTAL 0.2 mg/dL (0.2-1.0); CALCIUM 8.8 mg/dL (8.5-10.3); CREATININE 0.5 mg/dL (0.4-1.0); POTASSIUM 3.6 mmol/L (3.5-5.0); TOTAL PROTEIN 6.8 g/dL (6.7-8.2); URIC ACID 3.8 mg/dL (2.6-7.2)
[2020-09-26 18:42] VITALS: BP 134/83
[2020-09-26 18:50] LABS: CREATININE,URINE 175.2 mg/dL; PROTEIN/CREATININE RATIO,URINE 0.2 (<=0.2)
[2020-09-26] MEDS ORDERED: ACETAMINOPHEN 500 MG TABLET PO ONE (19:00)
--- NOTE | 2020-10-31 16:34 | PROCEDURE REPORT ---
- HPI Diagnosis/Indication for NST: Other (pre-eclampsia/CHTN) Current EDU 11/13/20 Gestation 33 Weeks and 1 Days 4 Para 2 Vital Signs Temperature 98.2 F 09/26/20 17:17 Heart Rate 93 09/26/20 17:17 Respiratory Rate 20 09/26/20 17:17 Blood Pressure 145/86 H 09/26/20 17:17 O2 Saturation 97 09/26/20 17:17 Temperature 98.2 F 09/26/20 17:17 Heart Rate 91 09/26/20 18:30 Respiratory Rate 16 09/26/20 18:14 Blood Pressure 134/83 H 09/26/20 18:30 O2 Saturation 97 09/26/20 18:14 - NST Procedure NST Procedure Start Date 09/26/20 Start Time 17:16 Stop Time 19:23 Vibroacoustic Stimulation Used No Patient States Movement Yes EFM 140 mod suzanne 15x15 accels no decels TOCO: quiet - Results and Plan Findings/Impression: Patient is a 40 yo at 33+1 wga with affected with CHTN and super imposed pre-eclampsia here for NST Mild range blood pressures PIH labs wnl. P:C 0.2 today Cat I tracing Cont with twice weekly NST and weekly DARIN DX: IUP at 33+1 wga AMA CHTN with MIGUEL NST Read 09/26/20 DOS 09/26/20 (Dr. Porras was on-call provider)
== END 2020-09-26 19:29 | disposition home or self-care (01) ==
LOC: WFO 17:09 → FBP 17:09 → WFO 19:29
PROVIDERS: ATTEND Obstetrics & Gynecology
DX: O11.3 Pre-existing hypertension with pre-eclampsia, third trimester (principal); O10.913 Unspecified pre-existing hypertension complicating pregnancy, third trimester; Z3A.33 33 weeks gestation of pregnancy
CPT/HCPCS: 36415; 59025; 80053; 82570; 84156; 84550; 85025; 99215; A9270; 99211

== ENCOUNTER 2020-09-27 10:53 | Observation (INO) | payer OTHER ==
[2020-09-27] MEDS ORDERED: LACTATED RINGERS 1,000 ML IV ONE (11:24)
[2020-09-27 11:27] LABS: BASOPHILS % (AUTO) 0.3 %; EOSINOPHILS # (AUTO) 0.1 10^3/uL (0.0-0.7); EOSINOPHILS % (AUTO) 0.7 %; HCT - HEMATOCRIT 34.2 % (37.0-47.0); HGB - HEMOGLOBIN 11.2 g/dL (12.0-16.0); LYMPHOCYTES # (AUTO) 1.7 10^3/uL (1.5-3.5); LYMPHOCYTES % (AUTO) 18.8 %; MEAN CORPUSCULAR HEMOGLOBIN 30.1 pg (27.0-31.0); MEAN CORPUSCULAR HGB CONC 32.7 g/dL (32.0-36.0); MEAN CORPUSCULAR VOLUME 91.9 fL (81.0-99.0); MONOCYTES # (AUTO) 0.6 10^3/uL (0.0-1.0); MONOCYTES % (AUTO) 6.9 %; NEUTROPHILS # (AUTO) 6.5 10^3/uL (1.5-6.6); NEUTROPHILS % (AUTO) 72.8 %; PLT - PLATELET COUNT 193 10^3/uL (130-450); RED BLOOD COUNT 3.72 10^6/uL (4.20-5.40); WHITE BLOOD COUNT 8.9 x10^3/uL (4.8-10.8)
[2020-09-27] MEDS: MAGNESIUM SULFATE IN WATER 20 GM/500 ML IV.SOLN IV SCH ×2 (11:30→22:27)
[2020-09-27] MEDS ORDERED: MAGNESIUM SULFATE 2 GRAM 2 GM/50 ML BAG IV SCH (12:00)
[2020-09-27] MEDS ORDERED: MAGNESIUM SULFATE 4 GRAM 4 GM/50 ML BAG IV ONE (12:00)
[2020-09-27] MEDS ORDERED: LABETALOL 20 MG/4 ML SYRINGE IVP ONE (12:00)
[2020-09-27] MEDS ORDERED: SERTRALINE 50 MG TABLET PO SCH (20:01)
[2020-09-27] MEDS ORDERED: SIMETHICONE CHEW 80 MG TABLET PO PRN (20:02)
[2020-09-27] MEDS: ASPIRIN CHEW 81 MG TABLET PO SCH (21:11)
[2020-09-27] MEDS: NIFEdipine ER 30 MG TABLET PO SCH (21:11)
--- NOTE | 2020-09-27 22:26 | HISTORY & PHYSICAL EXAMINATION ---
Admit History - : 4 Parity: 2 Care: positive: [facility] Risk/History: positive: Previous , Pre-eclampsia Complications This : positive: Pre-eclampsia, Chronic HTN Smoking Status: Never smoker - Mother's Labs Mother's Blood Type: positive: A Mother's RH: positive: Positive Rubella Status: positive: Immune - Other Maternal History Other Maternal History: Patient is a 40 yo at 33+2 wga with pre-eclampsia admitted with severe range pressures. Patient has had several pregnancies affected by preeclampsia with severe features resulting in deliveries. She was seen in clinic today with SBPs in the 170s She presented a log of blood pressures in which she has been having intermittent severe range blood pressures. This occurs when she is due for her medications. Her blood pressures normalize after the medications but then she feels unwell. On 09/08/20, she had an MTP of 0.3. She has had several since then that are wnl. She had one on 09/26/20 that was 0.2 with normal PIH labs. Because her blood pressures were markedly and persistently elevated in clinic, she was sent to triage for management of severe range pressures. No ONEILL/vision change/ RUQ pain. Endorsed FM. Denies LOF/VB/CTX. Profiling BG 2/2 abnl glucola. Has been taking nifedipine XL 30 mg po bid and labetalol 200 mg po daily at midday. Has had betamethasone on 09/08 20 and 09/09/20 OB HX: Has had two deliveries 2/2 preeclampsia; DX at 32 weeks and delivered at 34+1 DX of 34 weeks and delivered at 34+3 Both delivered via Had been on lisinopril prior to pregnanct. Now on labetalol 100 mg po bid Also taking ASA 81 mg daily. and a calcium supplement. Had HPV on 04/19/20 pap and will need a repeat in 04/2021 Normal colposcopy No STIs and no HSV Menses Q month. No dyspareunia. Has never been diagnosed with GDM but son had polyhydramnios and was sleiveredat 34weeks weighing 6# 11 oz. Spent 4 weeks in NICU. Had diabetic features. Review of records show that blood pressures were runnng 150s/100 in April 2020. Had trace urine protein on intake OB UA. Past Medical History: pre-eclampsia with severe features x2 delivery x2 CHTN Anxiety/depression Past Surgical History: Cholecystectomy (1995) D&E (2004) (2014) x2 course is as follows: DATING: LMP 02/07/20 gives SONIA 11/13/20 US on 04/19/20 at 10+0 wga gives SONIA 11/15/20; cwd CHTN: -BPs in 170s today -Sending to triage -Has had P:C of 0.3 on 09/08/20 -ASA 81 -Nifed 30 mg po bid and labetalol 200 once daily ANXIETY/DEPRESSION: Taking sertraline 75 mg po daily. A pos/Rubella imm VZV: had chicken pox as a child Genetic testing: normal, per pt FAS: normal, per pt Glucola 162; profiling. Did not bring BG log today Influenza: received per pt TDAP given today GBS: Needs in triage HSV: denies Breast pump Rx MOD: repeat CS- signed BTL consents 08/31/20 pp contraception: pap: 04/19/2020. HPV+ and needs repeat in April Meds/Allgy - Home Medications Home Medications: Ambulatory Orders Medication Instructions Recorded Confirmed Labetalol [Trandate] 200 mg PO BID 09/08/20 09/27/20 Sertraline [Zoloft] 50 mg PO DAILY 09/08/20 09/27/20 NIFEdipine [Procardia Xl] 30 mg PO DAILY #90 tablet 09/15/20 09/27/20 - Allergies Allergies/Adverse Reactions: Allergies Allergy/AdvReac Type Severity Reaction Status Date / Time blueberry Allergy Intermediate Hives Verified 09/27/20 19:52 bee venom protein (honey bee) Allergy Hives Verified 09/27/20 19:52 Review of Systems - Other Findings Other Findings: As per HPI, otherwise remaining systems are negative. Physical - Abdominal Exam Vital Signs: Temp Pulse Resp BP Pulse Ox 97.9 F 92 20 147/91 H 98 09/27/20 19:20 09/27/20 21:00 09/27/20 19:20 09/27/20 21:00 09/27/20 19:20 172/110 11:31 am (at admit) 173/95 11: 45 Given labetalol 20 mg IV x1 128/73 at 12:00 Contraction Frequency (min/apart): none - Monitoring Heart Rate Baseline: 130 mod suzanne 15x15 accels no decels Strip Review: positive: Category I - Presentation Presentation: positive: Vertex - Other Notes Labor Progress Note/Additional Text: GEN: NAD HEAD: NCAT EYES: No scleral icterus or conjunctival injection CV: RRR RESP: CTAB, normal effort ABD: S&NT/ND PSYCH: appropriate affect NEURO: alert and oriented, normal gait and coordination EXT: WWP Plan for Labor - Plan For Labor Plan for Labor: CHTN with MIGUEL: Normal PIH labs BPs normalized after labetalol 20 mg IV x1 Started on magnesium 4g bolus with 2g infusion for 24 hours -cont nifedipine XL 30 mg po bid and labetalol 200 mg po at midday -Cont ASA FWB: Cat I tracing Received BMZ on 09/08/20 and 09/09/20. -Will give rescue dose with poor BP control -Growth us in the am GDM: Failed glucola. Profiling in place of 3H GTT -POC glucose; Fasting and one hour PP for each meal Sertraline: Currently on 75 mg po daily. Cont current dosing. Remain in-house until magnesium infusion complete Will re-visit dispo after assessing stability of BPs.
[2020-09-27 22:57] LABS: BASOPHILS % (AUTO) 0.4 %; EOSINOPHILS # (AUTO) 0.1 10^3/uL (0.0-0.7); HCT - HEMATOCRIT 32.8 % (37.0-47.0); HGB - HEMOGLOBIN 10.8 g/dL (12.0-16.0); LYMPHOCYTES # (AUTO) 1.7 10^3/uL (1.5-3.5); MEAN CORPUSCULAR HEMOGLOBIN 30.7 pg (27.0-31.0); MEAN CORPUSCULAR HGB CONC 32.9 g/dL (32.0-36.0); MEAN CORPUSCULAR VOLUME 93.2 fL (81.0-99.0); MEAN PLATELET VOLUME 9.7 fL (7.9-10.8); MONOCYTES # (AUTO) 0.6 10^3/uL (0.0-1.0); NEUTROPHILS # (AUTO) 5.5 10^3/uL (1.5-6.6); NEUTROPHILS % (AUTO) 69.2 %; PLT - PLATELET COUNT 197 10^3/uL (130-450); RED BLOOD COUNT 3.52 10^6/uL (4.20-5.40); RED CELL DISTRIBUTION WIDTH 14.3 % (12.0-15.0); WHITE BLOOD COUNT 7.9 x10^3/uL (4.8-10.8)
[2020-09-27 23:04] LABS: ALBUMIN 3.2 g/dL (3.2-5.5); BILIRUBIN,TOTAL 0.4 mg/dL (0.2-1.0); CALCIUM 7.6 mg/dL (8.5-10.3); CREATININE 0.6 mg/dL (0.4-1.0); POTASSIUM 3.8 mmol/L (3.5-5.0); TOTAL PROTEIN 6.5 g/dL (6.7-8.2)
[2020-09-28] MEDS ORDERED: ACETAMINOPHEN 500 MG TABLET PO PRN (03:35)
[2020-09-28 03:51] LABS: CREATININE,URINE 56.1 mg/dL; PROTEIN/CREATININE RATIO,URINE 0.1 (<=0.2)
--- NOTE | 2020-09-28 08:59 | Ultrasound Report ---
PROCEDURE: OB F/U or Repeat INDICATIONS: Pre-eclampsia. Please assess growth and fluid OUTSIDE/PRIOR DATING DATA: Estimated date of delivery (SONIA): 11/13/2020. TECHNIQUE: Real-time scanning was performed of the fetus, with image documentation and biometric measurements. Endovaginal scanning: Not needed COMPARISON: All prior available OB ultrasound studies for this . FINDINGS: General: A single living intrauterine gestation is present. Presentation: Vertex Placenta: Placental position is posterior, without previa. Amniotic fluid index: 19.1 cm, normal for gestational age. heart rate: 155 beats per minute. Maternal cervical canal: 3.2 cm long; normal length is 2.5 cm or more. biometrics: Biparietal diameter: 8.6 cm, 34 weeks 4 days Head circumference: 30.8 cm, 34 weeks 3 days Abdominal circumference: 30.9 cm, 34 weeks 6 days Femur length: 6.3 cm, 32 weeks 5 days Estimated gestational age from initial scan: 33 weeks 3 days. Composite gestational age from present scan: 34 weeks 1 day Measurement variability in biometric dating: +/- 10 days from 12-20 weeks gestation, +/- 2 weeks from 20-30 weeks gestation, +/- 3 weeks at 30 weeks gestation or more. Other: Incidental note is made of a right ovarian cyst measuring 2.8 x 2.2 x 2.0 cm, simple in charac ter. IMPRESSION: Right ovarian cyst incidentally noted. This measures 2.8 cm in maximal dimension. Approp riate interval growth of the fetus, normal amniotic fluid volume, no anomaly is suspected. Reviewed by: Larry Vargas MD on 09/28/2020 8:58 AM PDT Approved by: Larry Vargas MD on 09/28/2020 8:58 AM PDT Station ID: [id number]
[2020-09-28] MEDS: MAGNESIUM SULFATE IN WATER 20 GM/500 ML IV.SOLN IV SCH (09:32)
[2020-09-28] MEDS: ASPIRIN CHEW 81 MG TABLET PO SCH (09:39)
[2020-09-28] MEDS: NIFEdipine ER 30 MG TABLET PO SCH ×2 (09:39→21:00)
[2020-09-28] MEDS: SERTRALINE 50 MG TABLET PO SCH ×2 (09:41→20:58)
--- NOTE | 2020-09-28 11:45 | PROVIDER PROGRESS NOTE ---
Subjective - Prog Note Date Prog Note Date: 09/28/20 Prog Note Time: 09:00 - Subjective Subjective: Patient has had normal ti mild range pressures since time of admission. Has continued on nifedipine XL 30 mg po bid and labetalol 200 mg po at midday. Has a mild ONEILL attributed to magnesium. No other PIH symptoms. Feels baby moving. Had growth us this am. Normal PIH labs and P:C wnl. Patient reveals she had vomitied her nifedipine on the night prior to last presentation. Objective - Vital Signs/Intake & Output Reviewed Vital Signs: Yes Vital Signs: Vital Signs x48h Temp Pulse Resp BP Pulse Ox 09/28/20 11:35 98.2 F 98 16 124/78 98 09/28/20 08:00 140/89 H 09/28/20 07:00 97.9 F 85 18 149/87 H 99 09/28/20 06:00 94 132/84 H 09/28/20 04:00 82 147/89 H Intake & Output: Intake & Output 09/25/20 09/26/20 09/27/20 09/28/20 23:59 23:59 23:59 23:59 Intake Total 500 500 Output Total 700 400 Balance -200 100 - Objective General Appearance: positive: No acute distress Respiratory: positive: Breath sounds nml Cardiovascular: positive: Other (RR) Abdomen: positive: Non-tender, No distention, Other (Gravid, no RUQ TTP) Skin: positive: Color nml Extremities: positive: Non-tender Neurologic/Psychiatric: positive: Oriented x3 - Lab Results Fish Bones: 09/27/20 22:47 09/27/20 22:47 Other Labs: Lab Results x24hrs 09/28/20 09/28/20 09/27/20 Range/Units 07:53 03:30 22:47 WBC (4.8-10.8) x10^3/uL RBC (4.20-5.40) 10^6/uL Hgb (12.0-16.0) g/dL Hct (37.0-47.0) % MCV (81.0-99.0) fL MCH (27.0-31.0) pg MCHC (32.0-36.0) g/dL RDW (12.0-15.0) % Plt Count (130-450) 10^3/uL MPV (7.9-10.8) fL Neut # (Auto) (1.5-6.6) 10^3/uL Lymph # (Auto) (1.5-3.5) 10^3/uL Page # (Auto) (0.0-1.0) 10^3/uL Eos # (Auto) (0.0-0.7) 10^3/uL Baso # (Auto) (0.0-0.1) 10^3/uL Absolute Nucleated RBC x10^3/uL Nucleated RBC % /100WBC Sodium 135 (135-145) mmol/L Potassium 3.8 (3.5-5.0) mmol/L Chloride 101 (101-111) mmol/L Carbon Dioxide 24 (21-32) mmol/L Anion Gap 10.0 (6-13) BUN 6 (6-20) mg/dL Creatinine 0.6 (0.4-1.0) mg/dL Estimated GFR (MDRD) 112 (>89) Glucose 106 H (70-100) mg/dL POC Whole Bld Glucose 96 (70 - 100) mg/dL Calcium 7.6 L (8.5-10.3) mg/dL Total Bilirubin 0.4 (0.2-1.0) mg/dL AST 27 (10-42) IU/L ALT 31 (10-60) IU/L Alkaline Phosphatase 74 (42-121) IU/L Total Protein 6.5 L (6.7-8.2) g/dL Albumin 3.2 (3.2-5.5) g/dL Globulin 3.3 (2.1-4.2) g/dL Albumin/Globulin Ratio 1.0 (1.0-2.2) Urine Creatinine 56.1 mg/dL Ur Total Protein Timed 7 mg/dL Protein/Creatinin Ratio 0.1 (<=0.2) //21 Range/Units 22:47 WBC 7.9 (4.8-10.8) x10^3/uL RBC 3.52 L (4.20-5.40) 10^6/uL Hgb 10.8 L (12.0-16.0) g/dL Hct 32.8 L (37.0-47.0) % MCV 93.2 (81.0-99.0) fL MCH 30.7 (27.0-31.0) pg MCHC 32.9 (32.0-36.0) g/dL RDW 14.3 (12.0-15.0) % Plt Count 197 (130-450) 10^3/uL MPV 9.7 (7.9-10.8) fL Neut # (Auto) 5.5 (1.5-6.6) 10^3/uL Lymph # (Auto) 1.7 (1.5-3.5) 10^3/uL Page # (Auto) 0.6 (0.0-1.0) 10^3/uL Eos # (Auto) 0.1 (0.0-0.7) 10^3/uL Baso # (Auto) 0.0 (0.0-0.1) 10^3/uL Absolute Nucleated RBC 0.00 x10^3/uL Nucleated RBC % 0.0 /100WBC Sodium (135-145) mmol/L Potassium (3.5-5.0) mmol/L Chloride (101-111) mmol/L Carbon Dioxide (21-32) mmol/L Anion Gap (6-13) BUN (6-20) mg/dL Creatinine (0.4-1.0) mg/dL Estimated GFR (MDRD) (>89) Glucose (70-100) mg/dL POC Whole Bld Glucose (70 - 100) mg/dL Calcium (8.5-10.3) mg/dL Total Bilirubin (0.2-1.0) mg/dL AST (10-42) IU/L ALT (10-60) IU/L Alkaline Phosphatase (42-121) IU/L Total Protein (6.7-8.2) g/dL Albumin (3.2-5.5) g/dL Globulin (2.1-4.2) g/dL Albumin/Globulin Ratio (1.0-2.2) Urine Creatinine mg/dL Ur Total Protein Timed mg/dL Protein/Creatinin Ratio (<=0.2) Assessment/Plan - Problem List (1) Hypertension affecting , antepartum Impression: Presented with severe range pressures Rec'd labetalol 20 mg IV x1 and has had normal to mild range pressures since Normal PIH labs including P:C Offered to switch to labetalol and off nifedipine but noted taht BPs have been well controlled on current regimen. Patient notes that she has nausea from the nifedipine and actually vomited the nifedipine on the night prior to presentation. Declines change in medications but may benefit from Zofram prior to nifed dosing. Will DC Magnesium at 11:30 amd and will remain in house for continued observation off the infusion GDM: FBG 96 Cont to profile FWB: Growth us this am -Cat I tracin g -BMZ 09/08 and 09/09--eligible for rescue dose Cont in [facility]
[2020-09-28] MEDS: LABETALOL 100 MG TABLET PO SCH (12:04)
[2020-09-29] MEDS: LABETALOL 100 MG TABLET PO SCH (08:26)
[2020-09-29] MEDS: SERTRALINE 50 MG TABLET PO SCH (08:26)
[2020-09-29] MEDS: NIFEdipine ER 30 MG TABLET PO SCH (08:44)
--- NOTE | 2020-09-29 10:26 | PROVIDER PROGRESS NOTE ---
Subjective - Prog Note Date Prog Note Date: 09/29/20 Prog Note Time: 10:22 - Subjective Pt reports feeling: Improved Objective - Vital Signs/Intake & Output Reviewed Vital Signs: Yes Vital Signs: Vital Signs x48h Temp Pulse Resp BP Pulse Ox 09/29/20 09:00 37.1 C 84 16 125/77 96 09/29/20 07:52 37.0 C 79 16 144/82 H 09/29/20 07:00 37.1 C 78 16 143/89 H 98 09/29/20 06:00 36.8 C 78 17 136/80 H 99 09/29/20 04:00 36.9 C 82 18 137/82 H 100 Intake & Output: Intake & Output 09/26/20 09/27/20 09/28/20 09/29/20 23:59 23:59 23:59 23:59 Intake Total 500 2048 500 Output Total 700 400 Balance -200 1648 500 - Objective General Appearance: positive: No acute distress, Alert Reflexes: Knee (R): 3+, Knee (L): 3+ - Lab Results Fish Bones: 09/27/20 22:47 09/27/20 22:47 Other Labs: Lab Results x24hrs 09/28/20 09/28/20 09/28/20 Range/Units 23:49 19:38 13:02 POC Whole Bld Glucose 90 110 H 141 H (70 - 100) mg/dL 09/28/20 Range/Units 11:45 POC Whole Bld Glucose 88 (70 - 100) mg/dL Assessment/Plan - Problem List (1) Hypertension affecting , antepartum Impression: BP stabilized on procardia SR 30 bid reviewed 2 hour postparandials elevated Start metformin 500 mg Send home keep NST appt seen in the clinic next week
[2020-09-29 10:36] VITALS: BP 137/74
== END 2020-09-29 10:50 | disposition home or self-care (01) ==
LOC: WFO 10:53 → FBP 10:58 → WFO 13:10 → FBP 13:11 → UNDOADMOB 13:11 → FBP 19:43 → OBS 09-28 17:34
PROVIDERS: ADMIT Obstetrics & Gynecology; ATTEND Obstetrics & Gynecology
DX: O11.3 Pre-existing hypertension with pre-eclampsia, third trimester (principal); O10.913 Unspecified pre-existing hypertension complicating pregnancy, third trimester; O24.415 Gestational diabetes mellitus in pregnancy, controlled by oral hypoglycemic drugs; O99.343 Other mental disorders complicating pregnancy, third trimester; F41.9 Anxiety disorder, unspecified; F32.9 Major depressive disorder, single episode, unspecified; R87.89 Other abnormal findings in specimens from female genital organs; Z3A.33 33 weeks gestation of pregnancy; O34.219 Maternal care for unspecified type scar from previous cesarean delivery; Z79.899 Other long term (current) drug therapy; Z79.82 Long term (current) use of aspirin
CPT/HCPCS: 36415; 76816; 80053; 82570; 84156; 85025; 96365; 96366; 96376; A9270; G0378; J7120; J3475

== ENCOUNTER 2020-09-30 17:09 | Outpatient (CLI) | payer OTHER ==
[2020-09-30 17:36] VITALS: BP 133/89
--- NOTE | 2020-10-01 13:12 | PROCEDURE REPORT ---
- HPI Diagnosis/Indication for NST: Gestational Hypertension Current EDU 11/13/20 Gestation 33 Weeks and 5 Days 4 Para 2 Vital Signs Temperature 97.9 F 09/30/20 17:19 Heart Rate 105 H 09/30/20 17:19 Respiratory Rate 20 09/30/20 17:19 Blood Pressure 131/81 H 09/30/20 17:19 O2 Saturation 95 09/30/20 17:19 Temperature 97.9 F 09/30/20 17:19 Heart Rate 102 H 09/30/20 17:30 Respiratory Rate 18 09/30/20 17:30 Blood Pressure 133/89 H 09/30/20 17:30 O2 Saturation 96 09/30/20 17:30 - NST Procedure NST Procedure Start Date 09/30/20 Start Time 17:16 Stop Time 17:41 Vibroacoustic Stimulation Used No Patient States Movement Yes EFM: 150 mod suzanne 15x15 accels no decels TOCO: quiet - Results and Plan Findings/Impression: 40 yo at 33+5 wga with CHTN/MIGUEL on antihypertensives Cat I tracing Cont with twice weekly NST and weekly DARIN
== END 2020-09-30 17:45 | disposition home or self-care (01) ==
LOC: WFO 17:09 → FBP 17:10 → WFO 17:45
PROVIDERS: ATTEND Obstetrics & Gynecology
DX: O09.90 Supervision of high risk pregnancy, unspecified, unspecified trimester (principal); O11.3 Pre-existing hypertension with pre-eclampsia, third trimester; Z3A.33 33 weeks gestation of pregnancy
CPT/HCPCS: 59025

== ENCOUNTER 2020-09-30 17:48 | Outpatient (CLI) | payer OTHER | END 2020-09-30 17:49 | disposition home or self-care (01) | LOC: DI 17:48 | PROVIDERS: ATTEND Obstetrics & Gynecology | DX: O09.90 Supervision of high risk pregnancy, unspecified, unspecified trimester (principal) ==

== ENCOUNTER 2020-10-03 17:04 | Outpatient (CLI) | payer OTHER ==
[2020-10-03 17:25] VITALS: BP 126/74
--- NOTE | 2020-10-05 09:03 | PROCEDURE REPORT ---
- HPI Diagnosis/Indication for NST: Gestational Hypertension Current EDU 11/13/20 Gestation 34 Weeks and 1 Days 4 Para 2 Vital Signs Temperature 36.8 C 10/03/20 17:14 Heart Rate 95 10/03/20 17:14 Respiratory Rate 17 10/03/20 17:14 Blood Pressure 126/74 10/03/20 17:14 O2 Saturation 96 10/03/20 17:14 Temperature 36.8 C 10/03/20 17:14 Heart Rate 95 10/03/20 17:14 Respiratory Rate 17 10/03/20 17:14 Blood Pressure 126/74 10/03/20 17:14 O2 Saturation 96 10/03/20 17:14 - NST Procedure NST Procedure Start Date 10/03/20 Start Time 17:10 Stop Time 17:34 Vibroacoustic Stimulation Used No Patient States Movement Yes - Results and Plan Findings/Impression: Reactive NST Blood pressure 126/74. Plan: October 2021Date of service Patient has her blood pressures are being controlled on gestational hypertension. Procardia 30 mg twice daily.
== END 2020-10-03 17:38 | disposition home or self-care (01) ==
LOC: WFO 17:04 → FBP 17:05 → WFO 17:38
PROVIDERS: ATTEND Obstetrics & Gynecology
DX: O13.3 Gestational [pregnancy-induced] hypertension without significant proteinuria, third trimester (principal); Z3A.34 34 weeks gestation of pregnancy; Z79.899 Other long term (current) drug therapy
CPT/HCPCS: 59025

== ENCOUNTER 2020-10-07 17:06 | Outpatient (CLI) | payer OTHER ==
[2020-10-07 17:35] LABS: BASOPHILS % (AUTO) 0.3 %; EOSINOPHILS # (AUTO) 0.1 10^3/uL (0.0-0.7); EOSINOPHILS % (AUTO) 0.9 %; HCT - HEMATOCRIT 33.8 % (37.0-47.0); HGB - HEMOGLOBIN 11.3 g/dL (12.0-16.0); LYMPHOCYTES # (AUTO) 1.3 10^3/uL (1.5-3.5); LYMPHOCYTES % (AUTO) 16.9 %; MEAN CORPUSCULAR HEMOGLOBIN 30.3 pg (27.0-31.0); MEAN CORPUSCULAR HGB CONC 33.4 g/dL (32.0-36.0); MEAN CORPUSCULAR VOLUME 90.6 fL (81.0-99.0); MONOCYTES # (AUTO) 0.5 10^3/uL (0.0-1.0); MONOCYTES % (AUTO) 7.1 %; NEUTROPHILS # (AUTO) 5.7 10^3/uL (1.5-6.6); NEUTROPHILS % (AUTO) 74.3 %; PLT - PLATELET COUNT 222 10^3/uL (130-450); RED BLOOD COUNT 3.73 10^6/uL (4.20-5.40); RED CELL DISTRIBUTION WIDTH 13.8 % (12.0-15.0); WHITE BLOOD COUNT 7.7 x10^3/uL (4.8-10.8)
[2020-10-07 17:43] LABS: CREATININE,URINE 155.2 mg/dL; PROTEIN/CREATININE RATIO,URINE 0.2 (<=0.2)
[2020-10-07 17:47] LABS: ALBUMIN 3.1 g/dL (3.2-5.5); ALBUMIN/GLOBULIN RATIO 0.8 (1.0-2.2); BILIRUBIN,TOTAL 0.3 mg/dL (0.2-1.0); CREATININE 0.5 mg/dL (0.4-1.0); POTASSIUM 3.2 mmol/L (3.5-5.0); TOTAL PROTEIN 6.9 g/dL (6.7-8.2)
[2020-10-07 17:54] VITALS: BP 148/93
--- NOTE | 2020-10-08 11:06 | PROCEDURE REPORT ---
- HPI Current EDU 11/13/20 Gestation 34 Weeks and 5 Days 4 Para 2 Vital Signs Heart Rate 105 H 10/07/20 17:31 Respiratory Rate 16 10/07/20 17:31 O2 Saturation 98 10/07/20 17:31 Temperature Heart Rate 105 H 10/07/20 17:31 Respiratory Rate 16 10/07/20 17:31 Blood Pressure 148/93 H 10/07/20 17:53 O2 Saturation 98 10/07/20 17:31 - NST Procedure NST Procedure Start Date 10/07/20 Start Time 17:30 Stop Time 17:55 Vibroacoustic Stimulation Used No Patient States Movement Yes - Results and Plan Findings/Impression: DOS 10/07/20 REACTIVE NST Plan: CONTINUE TESTING
--- NOTE | 2020-10-08 15:32 | Ultrasound Report ---
PROCEDURE: OB Limited INDICATIONS: UNSPECIFIED PRE-ECLAMPSIA OUTSIDE/PRIOR DATING DATA: Last menstrual period (LMP): Not provided. LMP-based estimated date of delivery (SONIA): Not provided. First dating scan (date and location): Not provided. Estimated date of delivery (SONIA) from first dating scan: Reportedly 11/13/2020.. TECHNIQUE: Real-time scanning was performed of the fetus, with image documentation. Endovaginal scanning: Not needed. COMPARISON: Prior OB ultrasound studies for this . FINDINGS: A single living intrauterine gestation is present. Presentation: Cephalic Placenta: Placental position is posterior, without previa. Amniotic fluid index: 23.0 cm, at the threshold for polyhydramnios for gestational age. heart rate: 147 beats per minutes. Maternal cervical canal: 3.2 cm long; normal length is 2.5 cm or more. Estimated gestational age from initial scan: 34 weeks 5 days. IMPRESSION: Polyhydramnios appears present, with current calculated amniotic fluid index of 23 cm. Reviewed by: Larry Vargas MD on 10/08/2020 2:31 PM YOAV Approved by: Larry Vargas MD on 10/08/2020 2:31 PM YOAV Station ID: [id number]
== END 2020-10-07 18:05 | disposition home or self-care (01) ==
LOC: DI 17:06 → FBP 17:09 → WFO 18:05
PROVIDERS: ATTEND Obstetrics & Gynecology
DX: O14.93 Unspecified pre-eclampsia, third trimester (principal); O40.3XX0 Polyhydramnios, third trimester, not applicable or unspecified; Z3A.34 34 weeks gestation of pregnancy
CPT/HCPCS: 36415; 59025; 80053; 82570; 84156; 85025

== ENCOUNTER 2020-10-10 17:08 | Outpatient (CLI) | payer OTHER ==
[2020-10-10 17:27] VITALS: BP 132/86
--- NOTE | 2020-10-30 19:48 | PROCEDURE REPORT ---
- HPI Diagnosis/Indication for NST: Other (pre-eclampsia) Current EDU 11/13/20 Gestation 35 Weeks and 1 Days 4 Para 2 Vital Signs Temperature 97.5 F L 10/10/20 17:21 Heart Rate 115 H 10/10/20 17:21 Respiratory Rate 16 10/10/20 17:21 Blood Pressure 132/86 H 10/10/20 17:21 O2 Saturation 98 10/10/20 17:21 Temperature 97.5 F L 10/10/20 17:21 Heart Rate 115 H 10/10/20 17:21 Respiratory Rate 16 10/10/20 17:21 Blood Pressure 132/86 H 10/10/20 17:21 O2 Saturation 98 10/10/20 17:21 - NST Procedure NST Procedure Start Date 10/10/20 Start Time 17:15 Stop Time 17:57 Vibroacoustic Stimulation Used No Patient States Movement Yes EFM 145 mod suzanne 15x15 accels no decels TOCO: Q7-8 min, mild - Results and Plan Findings/Impression: 40 yo at 35+1 wga with affected by pre-eclampsia here for NST Cat I tracing BPs wnl Cont with twice weekly monitoring Weekly DARIN DX: IUP at 35+1 wga Pre-eclampsia without severe features AMA Read on 10/10/20 DOS 10/10/20
== END 2020-10-10 18:05 | disposition home or self-care (01) ==
LOC: FBP 17:08 → WFO 17:08
PROVIDERS: ATTEND Obstetrics & Gynecology
DX: O14.03 Mild to moderate pre-eclampsia, third trimester (principal); Z3A.35 35 weeks gestation of pregnancy; O09.523 Supervision of elderly multigravida, third trimester
CPT/HCPCS: 59025

== ENCOUNTER 2020-10-11 08:00 | Outpatient (CLI) | payer OTHER | END 2020-10-11 23:59 | disposition home or self-care (01) | LOC: LAB.WC 08:00 | PROVIDERS: ATTEND Obstetrics & Gynecology | DX: Z36.85 Encounter for antenatal screening for Streptococcus B (principal) | CPT/HCPCS: 80053; 85025; 86850; 86900; 86901; 87797 ==

== ENCOUNTER 2020-10-11 11:56 | Outpatient (CLI) | payer OTHER ==
[2020-10-11] MEDS ORDERED: BETAMETHASONE 30 MG/5 ML VIAL IM ONE (12:02)
--- NOTE | 2020-10-30 19:51 | PROVIDER PROGRESS NOTE ---
- HPI Chief Complaint: Other - Procedures NST Procedure: NST Procedure Start Time 17:15 Stop Time 17:57 - Plan Plan: Patient is a 40 yo at 35+6 wga here for one time dose of BMZ Patient had received betamethasone on 09/08/20 and 09/09/20 for pre-eclampsia We are planning to deliver at 36+1 wga given worsening blood pressures She presented for rescue dose of BMZ 12 mg IM x1 Patient was not seen by provider
== END 2020-10-11 12:19 | disposition home or self-care (01) ==
LOC: WFO 11:56 → FBP 11:58 → WFO 12:19
PROVIDERS: ATTEND Obstetrics & Gynecology
DX: O14.93 Unspecified pre-eclampsia, third trimester (principal); Z3A.35 35 weeks gestation of pregnancy
CPT/HCPCS: 96372

== ENCOUNTER 2020-10-14 17:05 | Outpatient (CLI) | payer OTHER ==
[2020-10-14 17:20] VITALS: BP 153/87
[2020-10-14 17:37] LABS: BASOPHILS % (AUTO) 0.4 %; EOSINOPHILS # (AUTO) 0.1 10^3/uL (0.0-0.7); EOSINOPHILS % (AUTO) 0.9 %; HCT - HEMATOCRIT 33.8 % (37.0-47.0); HGB - HEMOGLOBIN 11.2 g/dL (12.0-16.0); LYMPHOCYTES # (AUTO) 1.8 10^3/uL (1.5-3.5); LYMPHOCYTES % (AUTO) 18.5 %; MEAN CORPUSCULAR HEMOGLOBIN 29.8 pg (27.0-31.0); MEAN CORPUSCULAR HGB CONC 33.1 g/dL (32.0-36.0); MEAN CORPUSCULAR VOLUME 89.9 fL (81.0-99.0); MONOCYTES # (AUTO) 1.1 10^3/uL (0.0-1.0); MONOCYTES % (AUTO) 10.6 %; NEUTROPHILS # (AUTO) 6.8 10^3/uL (1.5-6.6); NEUTROPHILS % (AUTO) 68.7 %; PLT - PLATELET COUNT 214 10^3/uL (130-450); RED BLOOD COUNT 3.76 10^6/uL (4.20-5.40); RED CELL DISTRIBUTION WIDTH 13.4 % (12.0-15.0); WHITE BLOOD COUNT 9.9 x10^3/uL (4.8-10.8)
[2020-10-14 17:49] LABS: CREATININE,URINE 239.7 mg/dL; PROTEIN/CREATININE RATIO,URINE 0.2 (<=0.2)
[2020-10-14 17:50] LABS: ALBUMIN 3.1 g/dL (3.2-5.5); ALBUMIN/GLOBULIN RATIO 0.9 (1.0-2.2); BILIRUBIN,TOTAL 0.4 mg/dL (0.2-1.0); CALCIUM 8.7 mg/dL (8.5-10.3); CREATININE 0.5 mg/dL (0.4-1.0); POTASSIUM 3.5 mmol/L (3.5-5.0); TOTAL PROTEIN 6.7 g/dL (6.7-8.2)
--- NOTE | 2020-10-30 19:42 | PROCEDURE REPORT ---
- HPI Diagnosis/Indication for NST: Other (pre-eclampsia) Current EDU 11/13/20 Gestation 35 Weeks and 5 Days 4 Para 2 Vital Signs Temperature 98.8 F 10/14/20 17:15 Heart Rate 113 H 10/14/20 17:15 Respiratory Rate 20 10/14/20 17:15 Blood Pressure 153/87 H 10/14/20 17:15 O2 Saturation 97 10/14/20 17:15 Temperature 98.8 F 10/14/20 17:15 Heart Rate 113 H 10/14/20 17:15 Respiratory Rate 20 10/14/20 17:15 Blood Pressure 153/87 H 10/14/20 17:15 O2 Saturation 97 10/14/20 17:15 - NST Procedure NST Procedure Start Date 10/14/20 Start Time 17:19 Stop Time 17:41 Vibroacoustic Stimulation Used Yes Patient States Movement Yes EFM 145 mod suzanne 15x15 accels no decels TOCO: irritable - Results and Plan Findings/Impression: 40 yo at 35+5 wga with affected by por-eclampsia is here for NST Cat I tracing PIH labs ordered: wnl P:C 0.2, CBC and CMP wnl Cont with twice weekly NST and weekly DARIN Q4 wk growth us Scheduled for delivery in 2 days Plan: read on 10/14/20 DOS 10/14/20
== END 2020-10-14 17:47 | disposition home or self-care (01) ==
LOC: WFO 17:05 → FBP 17:06 → WFO 17:47
PROVIDERS: ATTEND Obstetrics & Gynecology
DX: O14.93 Unspecified pre-eclampsia, third trimester (principal); Z3A.35 35 weeks gestation of pregnancy; Z20.822 Contact with and (suspected) exposure to COVID-19
CPT/HCPCS: 36415; 59025; 80053; 82570; 84156; 85025

== ENCOUNTER 2020-10-14 17:49 | Outpatient (CLI) | payer OTHER ==
--- NOTE | 2020-10-14 23:26 | Ultrasound Report ---
PROCEDURE: OB Limited INDICATIONS: UNSPECIFIED PRE-ECLAMPSIA. Fluid check. OUTSIDE/PRIOR DATING DATA: Last menstrual period (LMP): Not given. LMP-based estimated date of delivery (SONIA): Not given. First dating scan (date and location): Not given. Estimated date of delivery (SONIA) from first dating scan: Reported as 11/13/2020. The below data below was generated using the physician given SONIA of 11/13/2020 TECHNIQUE: Real-time scanning was performed of the fetus, with image documentation. COMPARISON: Several priors, including 10/07/2020, 09/28/2020, and 09/23/2020 FINDINGS: A single live intrauterine gestation is present. Presentation: Cephalic Placenta: Placental position is posterior, without previa. Amniotic fluid index: 23.8 cm, near the upper limits of normal for gestational age. heart rate: 169 beats per minutes. Maternal cervical canal: 3.6 cm long; normal length is 2.5 cm or more. Estimated gestational age from initial scan: 33 weeks 5 days. The chest and diaphragm are unremarkable. The stomach and kidneys are within normal limits. The urinary bladder is unremarkable. IMPRESSION: The DARIN is near the upper limits of normal for gestational age at 23.8. Reviewed by: Gene Ramos MD on 10/14/2020 10:25 PM YOAV Approved by: Gene Ramos MD on 10/14/2020 10:25 PM YOAV Station ID: [id number]
== END 2020-10-14 17:50 | disposition home or self-care (01) ==
LOC: DI 17:49
PROVIDERS: ATTEND Obstetrics & Gynecology
DX: O14.93 Unspecified pre-eclampsia, third trimester (principal); Z3A.33 33 weeks gestation of pregnancy

== ENCOUNTER 2020-10-17 05:36 | Inpatient (IN) | payer OTHER ==
[2020-10-17] MEDS ORDERED: LACTATED RINGERS 1,000 ML IV ONE (06:08)
[2020-10-17] MEDS ORDERED: ONDANSETRON ODT 4 MG TABLET TL PRN (06:12)
[2020-10-17] MEDS ORDERED: SIMETHICONE CHEW 80 MG TABLET PO PRN (06:12)
[2020-10-17] MEDS ORDERED: OXYTOCIN/SODIUM CHLORIDE 500 ML IV PRN (06:12)
[2020-10-17] MEDS ORDERED: SODIUM CHLORIDE FLUSH 0.9% 10 ML SYRINGE IVP PRN (06:12)
[2020-10-17] MEDS ORDERED: oxyCODONE 5 MG TABLET PO PRN (06:12)
[2020-10-17] MEDS ORDERED: ceFAZolin 3 GM in SODIUM CHLORIDE 0.9% 100ML 100 ML IV ONE (06:36)
[2020-10-17] MEDS ORDERED: CITRIC ACID/SODIUM CITRATE 15 ML UDC PO ONE (06:37)
[2020-10-17] MEDS ORDERED: LACTATED RINGERS 1,000 ML IV SCH (07:00)
[2020-10-17] MEDS ORDERED: KETOROLAC 30 MG/ML VIAL IVP SCH (07:00)
[2020-10-17] MEDS ORDERED: ACETAMINOPHEN 500 MG TABLET PO SCH (07:00)
[2020-10-17] MEDS ORDERED: IBUPROFEN 600 MG TABLET PO SCH (07:00)
[2020-10-17] MEDS ORDERED: fentaNYL 100 MCG/2 ML VIAL ONE (07:23)
[2020-10-17] MEDS ORDERED: MORPHINE PF 5 MG/10 ML VIAL ONE (07:24)
[2020-10-17] MEDS ORDERED: ONDANSETRON 4 MG/2 ML VIAL ONE (07:24)
[2020-10-17] MEDS ORDERED: OXYTOCIN 10 UNIT/ML VIAL ONE (07:24)
--- NOTE | 2020-10-17 07:54 | ANESTHESIA ---
Pre-Anesthesia VS, & Labs - Diagnosis previous section - Procedure repeat section Vital Signs: Temp Pulse Resp BP Pulse Ox 37.2 C 95 18 140/93 H 10/17/20 05:54 10/17/20 05:54 10/17/20 05:54 10/17/20 05:54 Height: 5 ft 3 in Weight (kg): 95.254 kg Body Mass Index: 37.2 BMI Classification: Obese - NPO >8 hours - Is Patient ?: Yes - Lab Results Lab results reviewed: Yes Home Medications and Allergies Active Medications Acetaminophen (Acetaminophen 500 Mg Tablet) 1,000 mg PO Q8H SUSANA Docusate Sodium (Docusate Sodium 100 Mg Capsule) 100 mg PO BID [facility] Lactated Ringer's (Lr) 1,000 mls @ 100 mls/hr IV .Q10H [facility] Last Admin: 10/17/20 06:14 Dose: 100 mls/hr Documented by: Oxytocin/Sodium Chloride (Pitocin/Sodium Chloride) 500 mls @ 999 mls/hr IV PRN PRN; Protocol PRN Reason: POST- HEMORR PREVENTION Ibuprofen (Ibuprofen 600 Mg Tablet) 600 mg PO Q6H SUSANA Ketorolac Tromethamine (Ketorolac 30 Mg/Ml Vial) 30 mg IVP Q6H SUSANA Stop: 10/18/20 01:01 Ondansetron HCl (Ondansetron Odt 4 Mg Tablet) 4 mg TL Q4H PRN PRN Reason: Nausea / Vomiting Oxycodone HCl (Oxycodone 5 Mg Tablet) 5 mg PO Q4HR PRN PRN Reason: PAIN Simethicone (Simethicone Chew 80 Mg Tablet) 80 mg PO TID PRN PRN Reason: Gas Sodium Chloride (Sodium Chloride Flush 0.9% 10 Ml Syringe) 10 ml IVP 0100,0900,1700 SUSANA Sodium Chloride (Sodium Chloride Flush 0.9% 10 Ml Syringe) 10 ml IVP PRN PRN PRN Reason: NEEDED PER PROVIDER ORDERS Labetalol [Trandate] 200 mg PO BID 09/08/20 Sertraline [Zoloft] 50 mg PO DAILY 09/08/20 Allergies/Adverse Reactions: Allergies Allergy/AdvReac Type Severity Reaction Status Date / Time blueberry Allergy Intermediate Hives Verified 09/27/20 19:52 bee venom protein (honey bee) Allergy Hives Verified 09/27/20 19:52 Anes History & Medical History - Anesthetic History Anesthesia Complications: reports: No previous complications Family history of Anesthesia Complications: Denies Family history of Malignant Hyperthermia: Denies - Medical History Cardiovascular: reports: Hypertension Pulmonary: reports: None Gastrointestinal: reports: None Urinary: reports: None Endocrine/Autoimmune: reports: Other (gestational DM) Smoking Status: Never smoker Exam General: Alert, Oriented x3, Cooperative, No acute distress Dental: WNL Mouth Openin Fingerbreadth Neck Mobility: Normal Mallampati classification: II Respiratory: Lungs clear, Normal breath sounds, No respiratory distress, No accessory muscle use Cardiovascular: Regular rate, Normal S1, Normal S2, No murmurs Plan Anesthesia Type: Spinal Regional Block: Per Surgeon's request for Post Op pain control Consent for Procedure(s) Verified and Reviewed: Yes Code Status: Attempt Resuscitation ASA classification: 2-Mild systemic disease Is this case an emergency?: No
[2020-10-17 08:45] LABS: CREATININE,URINE 58.8 mg/dL; PROTEIN/CREATININE RATIO,URINE 0.2 (<=0.2)
[2020-10-17] MEDS ORDERED: DOCUSATE SODIUM 100 MG CAPSULE PO SCH (09:00)
[2020-10-17] MEDS ORDERED: SODIUM CHLORIDE FLUSH 0.9% 10 ML SYRINGE IVP SCH (09:00)
[2020-10-17 09:45] VITALS: BP 148/85
--- NOTE | 2020-10-17 10:30 | HISTORY & PHYSICAL EXAMINATION ---
HPI - History of Present Illness HPI Comment/Other: HPI - History of Present Illness HPI Comment/Other: Patient is a 40 yo at 36+1 wga here for scheduled and BTL in the setting of worsening blood pressures and polyhydramnios. Patient has had 2 deliveries 2/2 preeclampsia with severe features. On 09/08/20, she had P:C of 0.3 with normal measures since. She has had multiple medication adjustments including an in-patient stay for anti-hypertensive adjustments and was placed on magnesium infusion. She received betamethasone on 09/08/20 and 09/09/20 with a rescue dose 10/11/20. She had been well controlled after her in-patient stay but blood pressures have been trending up in the last week. She is currently on nifedipine XL 30 mg po bis and labetalol 200 mg at midday and QHS. PIH labs have remained wnl. DARIN on 10/14/20 was 24. Patient reports blood pressures of 160s/90s last night but mild range blood pressures are noted at this admission. Patient also has gestational diabetes on metformin 500 mg op daily at lunch. EFW 66%ile on 09/28/20. Past Medical History: pre-eclampsia with severe features x2 delivery x2 CHTN Anxiety/depression Past Surgical History: Cholecystectomy (1995) D&E (2004) (2014) x2 Social History: Lives in [place] with and children Just moved from [facility] Active duty and deploying in 2020 No [employer] Safe at home PNC: DATING: LMP 02/07/20 gives SONIA 11/13/20 US on 04/19/20 at 10+0 wga gives SONIA 11/15/20; cwd CHTN: --Nifed 30 mg po bid and labetalol 200 at midday, now adding labetalol 200 mg po QHS -Has had P:C of 0.3 on 09/08/20 but several normal since -ASA 81 -US on 09/28/20 showed EFW 665ile, 2370 g, posterior, cephalic -DARIN 23 on 10/08/20 -DARIN 23.8 on 10/14/20 -Blood pressures are trending up on two meds. -Will move CS to 36+1 wga and possibly sooner with persistent severe range press ures or PIH symptoms -Rescue dose BMZ 09/10/20 A2DM: On metformin 500 mg po at lunch --Getting twice weekly NST and weekly DARIN -EFW 66%ile on 09/28/20 ANXIETY/DEPRESSION: Taking sertraline 75 mg po daily. A pos/Rubella imm VZV: had chicken pox as a child Genetic testing: normal, per pt FAS: normal, per pt Glucola 162; profiling. Influenza: received per pt TDAP given GBS: neg HSV: denies Breast pump Rx Given MOD: repeat CS- siged BTL consents 08/31/20 pp contraception:BTL CS consents signed 10/11/20 pap: 04/19/2020. HPV+ and needs repeat in April Social & Family Hx - Social History Smoking Status: Never smoker Meds/Allgy - Home Medications Home Medications: Ambulatory Orders Medication Instructions Recorded Confirmed Labetalol [Trandate] 200 mg PO BID 09/08/20 09/27/20 Sertraline [Zoloft] 50 mg PO DAILY 09/08/20 09/27/20 NIFEdipine [Procardia Xl] 30 mg PO DAILY #90 tablet 09/15/20 09/27/20 - Allergies Allergies/Adverse Reactions: Allergies Allergy/AdvReac Type Severity Reaction Status Date / Time blueberry Allergy Intermediate Hives Verified 09/27/20 19:52 bee venom protein (honey bee) Allergy Hives Verified 09/27/20 19:52 Review of Systems - Other Findings Other Findings: As per HPI, otherwise remaining systems are negative. Exam - Physical Exam Comments/Other: GEN: NAD HEAD: NCAT EYES: No scleral icterus or conjunctival injection CV: RRR RESP: CTAB, normal effort ABD: Gravid, S&NT/ND PSYCH: appropriate affect NEURO: alert and oriented, normal gait and coordination EXT: WWP EFM 150 mod suzanne 15x15 accels no decels TOCO: quiet Impression/Plan - Problem List Problem List: PRE-OP: REPEAT WITH BTL Reviewed risks/benefits/alternatives to and BTL Risks include, but are not limited to, bleeding, infection, damage to neatby tissue and organs. On average, EBL of up to 1 liter is considered within normal limits for CS. Risks of blood transfusion include infection Risk of HIV 1/2million nationwide Risk of Hepatitis 1/1 million Risks of transfusion reaction Infection risk moderate given clean/contaminated nature of procedure and IV antibiotics will be given. Damage to nearby tissue and organs including bladder, bowel, ureters, blood vessels, nerves, and fetus Damage may be noted intra-op and may be delayed until after the procedure is complete Reviewed management of complications and efforts to avoid such outcomes but reviewed that they may occur despite our best efforts Confirmed that sterlization is desired Patient understands that tubal ligation is an irreversible process that will result in future infertility Written informed consent obtained. -T&C for 2 units PRBC -Cefazolin 2g IV OCTOR CHTN with MIGUEL/severe features: -On nifedipine Xl 30 bid and labetall 200 mg po bid -Avoid toradol -Avoid methergine FWB: vertex, appropriately grown, GBS negative, Cat I tracing -borderline line polyhydramnios -BMZ 09/08-09/09 and rescuse dose 10/11/20 She presents today for repeat CS and BTL given worsening blood pressures in severe range. Facility currently on divert. Spoke with Dr. Soheila Quevedo at [place] for transfer for delivery. Will transfer care for delivery at [place] on 10/18/20 PMH/PSH - Past Medical History Cardiovascular: positive: Hypertension Respiratory: positive: None Endocrine/Autoimmune: positive: Other (gestational DM) GI: positive: None : positive: None Social & Family Hx - Social History Smoking Status: Never smoker Meds/Allgy - Home Medications Home Medications: Ambulatory Orders Medication Instructions Recorded Confirmed Labetalol [Trandate] 200 mg PO BID 09/08/20 09/27/20 Sertraline [Zoloft] 50 mg PO DAILY 09/08/20 09/27/20 NIFEdipine [Procardia Xl] 30 mg PO DAILY #90 tablet 09/15/20 09/27/20 - Allergies Allergies/Adverse Reactions: Allergies Allergy/AdvReac Type Severity Reaction Status Date / Time blueberry Allergy Intermediate Hives Verified 09/27/20 19:52 bee venom protein (honey bee) Allergy Hives Verified 09/27/20 19:52 Exam - Vital Signs Vital Signs: Vital Signs x48h Temp Pulse Pulse Resp BP BP Pulse Ox 10/17/20 09:45 148/85 H 10/17/20 08:29 99.1 F 96 16 148/80 H 99 10/17/20 05:54 99.0 F 95 18 140/93 H Results - Lab Results Other Lab Results: Lab Results x24hrs 10/17/20 10/17/20 Range/Units 08:32 06:11 Urine Creatinine 58.8 mg/dL Ur Total Protein Timed 11 mg/dL Protein/Creatinin Ratio 0.2 (<=0.2) Blood Type A POSITIVE Antibody Screen NEGATIVE
--- NOTE | 2020-10-17 10:33 | PROCEDURE REPORT ---
- HPI Diagnosis/Indication for NST: Gestational Diabetes Current EDU 11/13/20 Gestation 36 Weeks and 1 Days 4 Vital Signs Temperature 99.0 F 10/17/20 05:54 Heart Rate 95 10/17/20 05:54 Respiratory Rate 18 10/17/20 05:54 Blood Pressure 140/93 H 10/17/20 05:54 Temperature 99.1 F 10/17/20 08:29 Heart Rate 96 10/17/20 08:29 Respiratory Rate 16 10/17/20 08:29 Blood Pressure 148/85 H 10/17/20 09:45 O2 Saturation 99 10/17/20 08:29 - NST Procedure NST Procedure Start Time 17:15 Stop Time 17:57 EFM 150 mod suzanne 15x15 accels no decels TOCO: 1 contraction in 20 minutes - Results and Plan Findings/Impression: Patient is a 40 yo at 36+1 with HTN with severe features and GDM here for NST Cat I tracing Planning on delivery at [place] on 10/18/20
[2020-10-17 13:19] LABS: HIV RAPID SCREEN NEGATIVE (NEGATIVE)
[2020-10-18 13:12] LABS: HEPATITIS B SURFACE ANTIGEN NON-REACTIVE (NON-REACTIVE); HEPATITIS C ANTIBODY NON-REACTIVE (NON-REACTIVE)
== END 2020-10-17 12:00 | disposition short-term general hospital (02) | DRG 833 ==
LOC: FBP 05:36
PROVIDERS: ADMIT Obstetrics & Gynecology; ATTEND Obstetrics & Gynecology
DX: O11.3 Pre-existing hypertension with pre-eclampsia, third trimester (principal); O10.913 Unspecified pre-existing hypertension complicating pregnancy, third trimester; Z3A.36 36 weeks gestation of pregnancy; O24.415 Gestational diabetes mellitus in pregnancy, controlled by oral hypoglycemic drugs; O34.219 Maternal care for unspecified type scar from previous cesarean delivery; O40.3XX0 Polyhydramnios, third trimester, not applicable or unspecified; O99.343 Other mental disorders complicating pregnancy, third trimester; F41.9 Anxiety disorder, unspecified; F32.9 Major depressive disorder, single episode, unspecified; Z90.49 Acquired absence of other specified parts of digestive tract; Z79.899 Other long term (current) drug therapy; Z79.82 Long term (current) use of aspirin
CPT/HCPCS: 36415; 82570; 84156; 86703; 86803; 86850; 86900; 86901; 87340; A9270; J2274; J7120; 87389